=== PATIENT | male | born 1955 | race Caucasian/White ===

== ENCOUNTER 2016-06-22 | Outpatient (CLI) | payer OTHER | END 2016-06-22 14:31 | disposition home or self-care (01) | DX: G62.0 Drug-induced polyneuropathy (principal) ==

== ENCOUNTER 2016-07-06 | Outpatient (CLI) | payer OTHER | END 2016-07-06 08:44 | disposition home or self-care (01) | DX: G62.0 Drug-induced polyneuropathy (principal) ==

== ENCOUNTER 2016-07-20 | Outpatient (CLI) | payer OTHER | END 2016-07-20 13:10 | disposition home or self-care (01) | DX: G62.0 Drug-induced polyneuropathy (principal) ==

== ENCOUNTER 2016-08-03 | Outpatient (CLI) | payer OTHER | END 2016-08-03 14:43 | disposition home or self-care (01) | DX: G62.0 Drug-induced polyneuropathy (principal) ==

== ENCOUNTER 2016-08-10 | Outpatient (CLI) | payer OTHER | END 2016-08-10 14:11 | disposition home or self-care (01) | DX: G62.0 Drug-induced polyneuropathy (principal) ==

== ENCOUNTER 2016-09-21 12:04 | Outpatient (CLI) | payer OTHER | END 2016-09-21 12:05 | disposition home or self-care (01) | DX: G62.0 Drug-induced polyneuropathy (principal) ==

== ENCOUNTER 2016-12-25 08:00 | Outpatient (CLI) | payer OTHER | END 2016-12-25 08:01 | disposition home or self-care (01) | LOC: LAB.R 08:00 | PROVIDERS: ATTEND Family Medicine | DX: J06.9 Acute upper respiratory infection, unspecified (principal); F41.9 Anxiety disorder, unspecified; K21.9 Gastro-esophageal reflux disease without esophagitis; M75.01 Adhesive capsulitis of right shoulder; F32.9 Major depressive disorder, single episode, unspecified; I10 Essential (primary) hypertension; G62.9 Polyneuropathy, unspecified; R05 Cough; J01.90 Acute sinusitis, unspecified; H92.09 Otalgia, unspecified ear; K59.00 Constipation, unspecified; M25.559 Pain in unspecified hip; R13.10 Dysphagia, unspecified | CPT/HCPCS: 86735; 86762; 86765 ==

== ENCOUNTER 2017-06-29 15:50 | Emergency (ER) | payer OTHER ==
[2017-06-29 16:01] VITALS: BP 121/47
--- NOTE | 2017-06-29 16:40 | XRAY Preliminary Report ---
Exam: XR CHEST 2 VIEW X-RAY IMPRESSION: Normal 2-view chest radiography. [facility] SITE ID: [id number]
--- NOTE | 2017-06-29 16:47 | XRAY Report ---
EXAM: CHEST RADIOGRAPHY EXAM DATE: 06/29/2017 04:26 PM. CLINICAL HISTORY: Prior stem cell transplant. Cough and shortness of breath for 2 days. COMPARISON: 11/21/2015. TECHNIQUE: 2 views. FINDINGS: Lungs/Pleura: No focal opacities evident. No pleural effusion. No pneumothorax. Normal volumes. Mediastinum: Heart and mediastinal contours are unremarkable. Other: Stable right subclavian Port-A-Cath tip mid-third SVC. Remote mild wedging T12. Old left humeral head and neck fracture. IMPRESSION: Normal 2-view chest radiography. [facility] Referring Provider Line: [phone] SITE ID: [id number]
--- NOTE | 2017-06-29 16:56 | ED Physician Documentation ---
PD HPI URI - Stated complaint Stated Complaint: COUGH/SOA/SWEATING - Chief complaint Chief Complaint: Resp - History obtained from History obtained from: Patient - History of Present Illness Timing - onset: How many weeks ago (over 1 week) Timing duration: Weeks (over 1 week of congestion, cough, chills, with worse cough and now productive the past day. Concerned about pneumonia.) Timing details: Gradual onset, Still present Associated symptoms: Fever, Chills, Nasal congestion, Productive cough. No: Sore throat, Hemoptysis, Chest pain, Bilateral edema Contributing factors: Sick contact, Immunocompromised (has lung tumor and is on meds for it.). No: Travel, COPD / asthma Review of Systems Constitutional: reports: Fever, Chills, Myalgias Nose: reports: Congestion. denies: Rhinorrhea / runny nose Throat: reports: Sore throat Cardiac: denies: Chest pain / pressure Respiratory: reports: Dyspnea, Cough, Wheezing GI: reports: Nausea. denies: Abdominal Pain, Vomiting, Diarrhea : denies: Dysuria, Frequency Skin: denies: Rash, Lesions Neurologic: reports: Generalized weakness. denies: Focal weakness, Numbness, Near syncope, Altered mental status, Headache Psychiatric: denies: Insomnia Endocrine: denies: Weight loss, Weight gain, Easy bruising / bleeding PD PAST MEDICAL HISTORY - Past Medical History Cardiovascular: None Respiratory: Pneumonia, Other (lung tumor) Endocrine/Autoimmune: Other GI: GERD, Hiatal hernia : None HEENT: None Psych: None Musculoskeletal: None Derm: None - Past Surgical History Past Surgical History: Yes General: Appendectomy, Colonoscopy, EGD - Present Medications Home Medications: Ambulatory Orders Medication Instructions Recorded Confirmed Omeprazole [PriLOSEC] 20 mg PO BID 04/07/13 06/29/17 Multivitamin [Multi Vitamin Daily] 1 tab PO DAILY 05/04/14 06/29/17 Valacyclovir HCl [Valtrex] 500 mg PO BID 06/08/14 06/29/17 Cholecalciferol (Vitamin D3) 400 unit PO DAILY 02/08/15 06/29/17 [Vitamin D] Dronabinol [Marinol] 10 mg PO Q8H PRN 02/08/15 06/29/17 Gabapentin 600 mg PO TID 07/05/15 06/29/17 Lorazepam [Ativan] 1 mg PO Q12H PRN 07/07/15 06/29/17 Aspirin Chewable [[place] 81 mg PO DAILY 02/28/16 06/29/17 Aspirin] Folic Acid 0.8 mg PO DAILY 02/28/16 06/29/17 Bupropion HCl [Wellbutrin Sr] 200 mg PO BID 05/29/16 06/29/17 traZODone [Desyrel] 75 mg PO DAILY PM PRN 07/24/16 06/29/17 Albuterol Sulf [Ventolin Hfa 1 - 2 puffs INH Q4HR PRN #1 inhaler 06/29/17 Inhaler] Benzonatate [Tessalon] 100 mg PO TID PRN #25 capsule 06/29/17 Dexamethasone [Decadron] 4 mg PO DAILY #5 tablet 06/29/17 Doxycycline Monohydrate 100 mg PO BID #14 tablet 06/29/17 guaiFENesin/CODEINE [Robitussin AC] 10 ml PO Q6H PRN #240 ml 06/29/17 - Allergies Allergies/Adverse Reactions: Allergies Allergy/AdvReac Type Severity Reaction Status Date / Time No Known Drug Allergies Allergy Unverified 04/07/13 14:59 - Living Situation Living Situation: reports: With spouse/s.o. - Social History Does the pt smoke?: No Smoking Status: Never smoker Does the pt drink ETOH?: No Does the pt have substance abuse?: No - POLST Patient has POLST: No PD ED PE NORMAL - Vitals Vital signs reviewed: Yes (sats are okay) - General General: Alert and oriented X 3, No acute distress, Well developed/nourished - HEENT HEENT: Ears normal, Pharynx benign - Neck Neck: Supple, no meningeal sign, No adenopathy, No JVD, No bruit - Cardiac Cardiac: RRR, No murmur - Respiratory Respiratory: No respiratory distress. No: Clear bilaterally (scattered exp wheezes noted. ) - Abdomen Abdomen: Soft, Non tender - Back Back: No CVA TTP - Derm Derm: Normal color, Warm and dry - Extremities Extremities: No tenderness to palpate, Normal ROM s pain, No edema, No calf tenderness / cord - Neuro Neuro: Alert and oriented X 3, No motor deficit, Normal speech Results - Vitals Vitals: Oxygen O2 Source Room air - Rads (name of study) chest Radiology: Prelim report reviewed (no infiltrates) PD MEDICAL DECISION MAKING - ED course Complexity details: reviewed results, considered differential (likely viral URI but he does have underlying lung Dz so can have increased possibility of bacterial colonization. ), d/w patient Departure - Departure Disposition: 01 Home, Self Care Clinical Impression: Upper respiratory infection Qualifiers: URI type: unspecified URI Qualified Code(s): J06.9 - Acute upper respiratory infection, unspecified Condition: Stable Record reviewed to determine appropriate education?: Yes Instructions: ED Upper Resp Infec Abx Tx Follow-Up: Caleb Quezada MD [Primary Care Provider] - Prescriptions: Albuterol Sulf [Ventolin Hfa Inhaler] 1 - 2 puffs INH Q4HR PRN #1 inhaler PRN Reason: Shortness Of Air/Wheezing Benzonatate [Tessalon] 100 mg PO TID PRN #25 capsule PRN Reason: Cough Dexamethasone [Decadron] 4 mg PO DAILY #5 tablet Doxycycline Monohydrate 100 mg PO BID #14 tablet guaiFENesin/CODEINE [Robitussin AC] 10 ml PO Q6H PRN #240 ml PRN Reason: Cough Comments: Drink lots of fluids. Usual medications. Use albuterol inhaler or nebulizer 4 times a day for the next week. This will help with breathing and decreased cough. Decadron for inflammation is a steroid which helps also to decrease coughing and improve breathing. This might often is viral in etiology but given your underlying problems, I would be inclined to treat with antibiotics just in case and use doxycycline twice daily for a week. Add Tessalon and codeine cough medicine as needed for symptoms. Recheck if worsening over the next several days. Discharge Date/Time: 06/29/17 18:00
[2017-06-29] MEDS ORDERED: BENZONATATE 100 MG CAPSULE PO STA (17:46)
[2017-06-29] MEDS ORDERED: DOXYCYCLINE 100 MG TABLET PO STA (17:46)
[2017-06-29] MEDS ORDERED: DEXAMETHASONE 10 MG/ML VIAL PO STA (17:46)
== END 2017-06-29 18:00 | disposition home or self-care (01) ==
LOC: ED 15:50
DX: J06.9 Acute upper respiratory infection, unspecified (principal)
CPT/HCPCS: 71046; 99283; A9270

== ENCOUNTER 2017-09-10 10:27 | Outpatient (CLI) | payer OTHER ==
[2017-09-10] MEDS ORDERED: SODIUM CHLORIDE FLUSH 0.9% 10 ML SYRINGE ONE (11:55)
[2017-09-10] MEDS ORDERED: SODIUM CHLORIDE 0.9% 1,000 ML IV ONE (11:55)
--- NOTE | 2017-09-10 12:28 | XRAY Report ---
TWO VIEW CHEST: 09/10/2017 CLINICAL INDICATION: Cough. COMPARISON: 06/29/2017. FINDINGS: Frontal and lateral views of the chest demonstrate a normal cardiac silhouette. Right subclavian port terminates in the superior vena cava. The lungs are clear. No effusion or pneumothorax is present. IMPRESSION: NO EVIDENCE OF ACUTE CARDIOPULMONARY DISEASE. NO SIGNIFICANT INTERVAL CHANGE. TD: 09/10/2017 12:27
== END 2017-09-10 10:28 | disposition home or self-care (01) ==
LOC: DI 10:27
PROVIDERS: ATTEND Internal Medicine Hematology & Oncology
DX: R05 Cough (principal)
CPT/HCPCS: 71046

== ENCOUNTER 2018-01-13 13:51 | Emergency (ER) | payer OTHER ==
[2018-01-13 14:42] LABS: BASOPHILS % (AUTO) 0.5 %; EOSINOPHILS % (AUTO) 3.9 %; HGB - HEMOGLOBIN 12.9 g/dL (14.0-18.0); MEAN CORPUSCULAR HEMOGLOBIN 34.5 pg (27.0-31.0); MEAN CORPUSCULAR HGB CONC 35.1 g/dL (32.0-36.0); MEAN CORPUSCULAR VOLUME 98.5 fL (80.0-94.0); MEAN PLATELET VOLUME 7.6 fL (7.4-11.4); MONOCYTES % (AUTO) 7.5 %; NEUTROPHILS % (AUTO) 82.1 %; PLT - PLATELET COUNT 124 10^3/uL (130-450); RED BLOOD COUNT 3.75 10^6/uL (4.70-6.10); RED CELL DISTRIBUTION WIDTH 15.5 % (12.0-15.0); WHITE BLOOD COUNT 9.4 x10^3/uL (4.8-10.8)
[2018-01-13 14:45] LABS: ABNORMAL LYMPHS % (MANUAL) 0 %
[2018-01-13 14:53] LABS: ALBUMIN 3.8 g/dL (3.2-5.5); ALBUMIN/GLOBULIN RATIO 1.8 (1.0-2.2); BILIRUBIN,TOTAL 0.6 mg/dL (0.2-1.0); CALCIUM 8.9 mg/dL (8.5-10.3); TOTAL PROTEIN 5.9 g/dL (6.7-8.2)
--- NOTE | 2018-01-13 15:00 | XRAY Report ---
Procedure Date: 01/13/2018 Accession Number: [id number] / [id number] Procedure: XR - Chest 2 View X-Ray CPT Code: 78586 FULL RESULT: EXAM: CHEST RADIOGRAPHY EXAM DATE: 01/13/2018 02:51 PM. CLINICAL HISTORY: Chest pain. COMPARISON: 09/10/2017. TECHNIQUE: 2 views. FINDINGS: Lungs/Pleura: No focal opacities evident. No pleural effusion. No pneumothorax. Normal volumes. Mediastinum: Heart and mediastinal contours are unremarkable. Other: Right chest port terminates in the upper SVC, stable. IMPRESSION: Normal 2-view chest radiography. [facility]
[2018-01-13 15:12] LABS: BAND NEUTROPHILS % (MANUAL) 2 %; LYMPHOCYTES # (MANUAL) 0.7 10^3/uL (1.5-3.5); LYMPHOCYTES % (MANUAL) 7 %; METAMYELOCYTES % (MANUAL) 2 %; MONOCYTES # (MANUAL) 1.1 10^3/uL (0.0-1.0); NEUTROPHILS # (MANUAL) 7.4 10^3/uL (1.5-6.6); NEUTROPHILS % (MANUAL) 77 %; RBC MORPHOLOGY (MULTIPLE) NORMAL APPEARANCE (NORMAL)
[2018-01-13 15:14] LABS: PLATELET ESTIMATE, MANUAL NORMAL (130-450,000) (NORMAL)
[2018-01-13 15:16] LABS: DIFFERENTIAL COMMENT MANUAL DIFFERENTIAL
--- NOTE | 2018-01-13 15:45 | ED Physician Documentation ---
PD HPI CHEST PAIN - Stated complaint Stated Complaint: CHEST PAIN - Chief complaint Chief Complaint: Cardiac - History obtained from History obtained from: Patient, Family - History of Present Illness Timing - onset: Other (62-year-old gentleman with history of multiple myeloma status post Autologous stem cell transplant in 2014 with a relapse last year and and chemotherapy now. He has a history of a remote appendectomy and hernia repair but no upper abdominal surgery. For the last 2 days he has had intermittent and like upper abdominal pain radiating up into the chest but not to the back associated with shortness of breath. When it happens it is severe and he feels confused and short of breath but not nauseous. It is not related to eating.) Review of Systems Constitutional: denies: Fever, Chills Cardiac: reports: Chest pain / pressure. denies: Palpitations, Pedal edema, Calf pain Respiratory: reports: Dyspnea. denies: Cough GI: reports: Abdominal Pain, Diarrhea. denies: Nausea, Vomiting, Constipation PD PAST MEDICAL HISTORY - Past Medical History Past Medical History: Yes Cardiovascular: None Respiratory: Pneumonia, Other Endocrine/Autoimmune: Other GI: GERD, Hiatal hernia : None HEENT: None Psych: None Musculoskeletal: None Derm: None - Past Surgical History Past Surgical History: Yes General: Appendectomy, Colonoscopy, EGD - Present Medications Home Medications: Ambulatory Orders Medication Instructions Recorded Confirmed Omeprazole [PriLOSEC] 20 mg PO BID 04/07/13 12/10/17 Multivitamin [Multi Vitamin Daily] 1 tab PO DAILY 05/04/14 12/10/17 Valacyclovir HCl [Valtrex] 500 mg PO BID 06/08/14 12/10/17 Cholecalciferol (Vitamin D3) 400 unit PO DAILY 02/08/15 12/10/17 [Vitamin D] Dronabinol [Marinol] 10 mg PO Q8H PRN 02/08/15 12/10/17 Lorazepam [Ativan] 1 mg PO Q12H PRN 07/07/15 12/10/17 Aspirin Chewable [[place] 81 mg PO DAILY 02/28/16 12/10/17 Aspirin] Bupropion HCl [Wellbutrin Sr] 200 mg PO BID 05/29/16 12/10/17 traZODone [Desyrel] 75 mg PO DAILY PM PRN 07/24/16 12/10/17 Pomalidomide [Pomalyst] 4 mg PO DAILY MDD Days 1-21, Q 28 10/24/17 12/10/17 days Gabapentin 600 mg PO TID #180 capsule 12/31/17 Dexamethasone [Decadron] 4 mg PO DAILY #50 tablet 01/08/18 - Allergies Allergies/Adverse Reactions: Allergies Allergy/AdvReac Type Severity Reaction Status Date / Time No Known Drug Allergies Allergy Verified 01/13/18 14:06 - Social History Does the pt smoke?: No Smoking Status: Never smoker Does the pt drink ETOH?: No Does the pt have substance abuse?: No - Family History Family history: reports: Non contributory - POLST Patient has POLST: No PD ED PE NORMAL - Vitals Vital signs reviewed: Yes - General General: Alert and oriented X 3, No acute distress - HEENT HEENT: PERRL, EOMI - Neck Neck: Supple, no meningeal sign, No bony TTP - Cardiac Cardiac: RRR, No murmur - Respiratory Respiratory: No respiratory distress, Clear bilaterally - Abdomen Abdomen: Normal bowel sounds, Soft, Non tender - Derm Derm: Normal color, Warm and dry, Other (The he had a rash after getting out of the shower earlier today but is gone now, no rash now on the upper chest.) - Extremities Extremities: No edema, No calf tenderness / cord - Neuro Neuro: Alert and oriented X 3, Normal speech - Psych Psych: Normal mood, Normal affect Results - Vitals Vitals: Vital Signs - 24 hr 01/13/18 01/13/18 14:03 15:28 Temperature 37.3 C Heart Rate 70 60 Respiratory 18 15 Rate Blood Pressure 130/65 127/73 O2 Saturation 99 99 Oxygen O2 Source Room air - EKG (time done) 1409 Rate: Rate (enter#) (69) [place]: Normal Intervals: Normal DC QRS: Normal Ischemia: Normal ST segments Computer interpretation: Agree with computer - Labs Labs: Laboratory Tests 01/13/18 01/13/18 01/13/18 14:35 14:35 14:35 WBC 9.4 RBC 3.75 L Hgb 12.9 L Hct 36.9 L MCV 98.5 H MCH 34.5 H MCHC 35.1 RDW 15.5 H Plt Count 124 L MPV 7.6 Neut # (Auto) Not Reportable Lymph # (Auto) Not Reportable [place] # (Auto) Not Reportable Eos # (Auto) Not Reportable Baso # (Auto) Not Reportable Absolute Nucleated RBC Not Reportable Total Counted 100 Band Neuts % (Manual) 2 Abnorm Lymph % (Manual) 0 Metamyelocytes % 2 H Nucleated RBC % Not Reportable Neutrophils # (Manual) 7.4 H Lymphocytes # (Manual) 0.7 L Monocytes # (Manual) 1.1 H Eosinophils # (Manual) 0.0 Basophils # (Manual) 0.0 Differential Comment MANUAL DIFFERENTIAL Platelet Estimate NORMAL (130-450,000) RBC Morph Micro Appear NORMAL APPEARANCE Sodium 135 Potassium 3.4 L Chloride 105 Carbon Dioxide 22 Anion Gap 8.0 BUN 14 Creatinine 1.0 Estimated GFR (MDRD) 76 L Glucose 119 H Calcium 8.9 Total Bilirubin 0.6 AST 12 ALT 16 Alkaline Phosphatase 63 Troponin I < 0.04 Total Protein 5.9 L Albumin 3.8 Globulin 2.1 Albumin/Globulin Ratio 1.8 Lipase 19 L - Rads (name of study) CTA Chest A/P Radiology: EMP read contemporaneously (Basically normal, remote T12 fracture.) PD MEDICAL DECISION MAKING - ED course ED course: 62-year-old gentleman presents with upper episodic upper abdominal pain radiating to the chest. Associated with diarrhea. Of note the CAT scan which is read as normal actually has a significant stool load which is somewhat in contrast to the history and I wonder if he is truly actually constipated in the transverse colon giving him colonic spasms. His exam remained benign here without significant pain. - Sepsis Event Vital Signs: Vital Signs - 24 hr 01/13/18 01/13/18 14:03 15:28 Temperature 37.3 C Heart Rate 70 60 Respiratory 18 15 Rate Blood Pressure 130/65 127/73 O2 Saturation 99 99 Oxygen O2 Source Room air Departure - Departure Disposition: 01 Home, Self Care Clinical Impression: Chest pain Qualifiers: Chest pain type: unspecified Qualified Code(s): R07.9 - Chest pain, unspecified Abdominal pain Qualifiers: Abdominal location: epigastric Qualified Code(s): R10.13 - Epigastric pain Condition: Good Record reviewed to determine appropriate education?: Yes Instructions: ED Chest Pain Atypical Unkn Cause, ED Abdominal Pain Unkn Cause Comments: Drink the bottle tonight. Return if worsening or if new symptoms develop.
[2018-01-13] MEDS ORDERED: IOPAMIDOL-300 100 ML VIAL ONE (15:57)
[2018-01-13] MEDS ORDERED: IOPAMIDOL-300 100 ML VIAL IVP ONE (16:56)
--- NOTE | 2018-01-13 17:06 | CT Report ---
Procedure Date: 01/13/2018 Accession Number: [id number] / [id number] Procedure: CT - Chest Angio (PE) CPT Code: FULL RESULT: EXAM: CT ANGIOGRAM CHEST EXAM DATE: 01/13/2018 04:52 PM. CLINICAL HISTORY: Chest pain. COMPARISON: CT CHEST WO CONTRAST 10/15/2014 12:51 AM. TECHNIQUE: Routine helical imaging was performed through the chest in the pulmonary arterial phase. IV Contrast: 100 cc Isovue-300. Reconstructions: Coronal 3-D MIP reconstructions.Sagittal and coronal. In accordance with CT protocol optimization, one or more of the following dose reduction techniques were utilized for this exam: automated exposure control, adjustment of mA and/or KV based on patient size, or use of iterative reconstructive technique. FINDINGS: Pulmonary Arteries: Diagnostic quality: Adequate through the segmental arteries. No evidence for acute or chronic pulmonary emboli. Lungs/Pleura: No consolidation, nodules, or edema. No effusions or pneumothorax. Mediastinum: Normal. No cardiac enlargement or adenopathy. Thoracic Aorta: Unremarkable. Upper Abdomen: Findings are detailed separately. Other: None. IMPRESSION: 1. Negative pulmonary CT angiogram. No pulmonary emboli. 2. No evidence of consolidation or effusion. No pneumothorax. 3. Findings within the abdomen and pelvis are detailed separately. [facility]
--- NOTE | 2018-01-13 17:14 | CT Report ---
Procedure Date: 01/13/2018 Accession Number: [id number] / [id number] Procedure: CT - Abdomen/Pelvis W/ CPT Code: FULL RESULT: EXAM: CT ABDOMEN AND PELVIS EXAM DATE: 01/13/2018 04:52 PM. CLINICAL HISTORY: Abdominal pain COMPARISONS: 05/20/2014. TECHNIQUE: Routine helical CT imaging was performed through the abdomen and pelvis. IV contrast: 100 cc Isovue-300. Enteric contrast: No. Reconstructions: Coronal and sagittal. In accordance with CT protocol optimization, one or more of the following dose reduction techniques were utilized for this exam: automated exposure control, adjustment of mA and/or KV based on patient size, or use of iterative reconstructive technique. FINDINGS: Lung Bases: Findings detailed separately. Liver: Low-density foci within the liver may represent cysts. No suspicious hepatic abnormalities are seen. Gallbladder/Bile Ducts: Unremarkable. Spleen: There is mild splenomegaly. Pancreas: There is mild pancreatic atrophy. No acute abnormalities. Adrenal Glands: Normal. Kidneys: Normal. No masses or hydronephrosis. Peritoneal Cavity/Bowel: No dilated or thick-walled bowel is seen. No intraperitoneal free air or free fluid. No enlarged mesenteric or retroperitoneal lymph nodes. No evidence of appendicitis. Pelvic Organs: Normal. The bladder and visualized pelvic organs are within normal limits. Vasculature: No aneurysms or other significant abnormality. Bones: Remote T12 fracture. There is mild multilevel lumbar spine disk space narrowing. Other: None. IMPRESSION: Negative abdomen and pelvis CT. [facility]
[2018-01-13] MEDS ORDERED: MAGNESIUM CITRATE 296 ML BOTTLE PO STA (17:35)
[2018-01-13 17:47] VITALS: BP 124/70
== END 2018-01-13 17:52 | disposition home or self-care (01) ==
LOC: ED 13:51
DX: R10.13 Epigastric pain (principal); R07.9 Chest pain, unspecified; R19.7 Diarrhea, unspecified; K21.9 Gastro-esophageal reflux disease without esophagitis; C90.02 Multiple myeloma in relapse; Z94.84 Stem cells transplant status; Z79.82 Long term (current) use of aspirin
CPT/HCPCS: 36415; 71046; 71275; 74177; 80053; 83690; 84484; 85025; 93005; 99283; A9270; Q9967

== ENCOUNTER 2018-03-10 10:32 | Emergency (ER) | payer OTHER ==
--- NOTE | 2018-03-10 11:13 | XRAY Report ---
Reason: soa neutroepnic Procedure Date: 03/10/2018 Accession Number: [id number] / [id number] Procedure: XR - Chest 2 View X-Ray CPT Code: 89306 FULL RESULT: EXAM: CHEST RADIOGRAPHY EXAM DATE: 03/10/2018 11:06 AM. CLINICAL HISTORY: Cough. COMPARISON: Previous exam of 01/13/2018. TECHNIQUE: 2 views. FINDINGS: Lungs/Pleura: No focal opacities evident. No pleural effusion. No pneumothorax. Normal volumes. Mediastinum: Heart and mediastinal contours are unremarkable. Other: Right-sided Port-A-Cath in place. IMPRESSION: Normal 2-view chest radiography. Right-sided Port-A-Cath in place. [facility]
--- NOTE | 2018-03-10 11:18 | ED Physician Documentation ---
History of Present Illness - Stated complaint Stated Complaint: DIFF BREATHING/COUGH - Chief complaint Chief Complaint: Resp - Additonal information Additional information: hx from pt 63 male per MAC notes chronically neutropenic 2/2 prior chemo for myeloma (per onc note now in complete remission since 10/03) to ED with cough and dyspnea exposed to coughing granddaughter no travel no fever no NVD no leg swelling per chart hx pna but not COPD or CHF Review of Systems Constitutional: denies: Fever Cardiac: denies: Chest pain / pressure Respiratory: reports: Cough GI: denies: Abdominal Pain, Nausea, Vomiting, Diarrhea Musculoskeletal: denies: Extremity swelling Immunocompromised: reports: Immunocompromised PD PAST MEDICAL HISTORY - Past Medical History Past Medical History: Yes Cardiovascular: None Respiratory: Pneumonia, Other Endocrine/Autoimmune: Other GI: GERD, Hiatal hernia : None HEENT: None Psych: None Musculoskeletal: None Derm: None - Past Surgical History Past Surgical History: Yes General: Appendectomy, Colonoscopy, EGD - Present Medications Home Medications: Ambulatory Orders Medication Instructions Recorded Confirmed Omeprazole [PriLOSEC] 20 mg PO BID 04/07/13 03/10/18 Multivitamin [Multi Vitamin Daily] 1 tab PO DAILY 05/04/14 03/10/18 Valacyclovir HCl [Valtrex] 500 mg PO BID 06/08/14 03/10/18 Cholecalciferol (Vitamin D3) 400 unit PO DAILY 02/08/15 03/10/18 [Vitamin D] Dronabinol [Marinol] 10 mg PO Q8H PRN 02/08/15 03/10/18 Lorazepam [Ativan] 1 mg PO Q12H PRN 07/07/15 03/10/18 Aspirin Chewable [[place] 81 mg PO DAILY 02/28/16 03/10/18 Aspirin] Bupropion HCl [Wellbutrin Sr] 200 mg PO BID 05/29/16 03/10/18 traZODone [Desyrel] 75 mg PO DAILY PM PRN 07/24/16 03/10/18 Gabapentin 600 mg PO TID #180 capsule 12/31/17 03/10/18 Dexamethasone [Decadron] 4 mg PO DAILY #50 tablet 01/08/18 03/10/18 Pomalidomide [Pomalyst] 2 mg PO DAILY 02/05/18 03/10/18 Albuterol Sulfate [Proair Hfa 2 puffs INH Q4H PRN #1 inhaler 03/10/18 Inhaler] Azithromycin [Zithromax] 250 mg PO DAILY #6 tablet 03/10/18 Benzonatate [Tessalon] 100 mg PO TID PRN #20 capsule 03/10/18 guaiFENesin/DEXTROMETHORPHAN 10 ml PO Q6H PRN #120 ml 03/10/18 [Robitussin Dm] - Allergies Allergies/Adverse Reactions: Allergies Allergy/AdvReac Type Severity Reaction Status Date / Time No Known Drug Allergies Allergy Verified 01/13/18 14:06 - Social History Does the pt smoke?: No Smoking Status: Never smoker Does the pt drink ETOH?: No Does the pt have substance abuse?: No - POLST Patient has POLST: No PD ED PE NORMAL - Vitals Vital signs reviewed: Yes - Neck Neck: Supple, no meningeal sign - Cardiac Cardiac: RRR - Respiratory Respiratory: Other (ronchi on L) - Abdomen Abdomen: Soft, Non tender - Derm Derm: Normal color - Extremities Extremities: No edema, No calf tenderness / cord - Neuro Neuro: Alert and oriented X 3 Results - Vitals Vitals: Vital Signs - 24 hr 03/10/18 03/10/18 03/10/18 10:37 12:34 13:16 Temperature 36.8 C Heart Rate 73 71 74 Respiratory 20 20 16 Rate Blood Pressure 137/63 H 126/66 O2 Saturation 97 96 Oxygen O2 Source Room air - Labs Labs: Laboratory Tests 03/10/18 03/10/18 11:15 11:21 WBC 8.8 RBC 4.02 L Hgb 13.7 L Hct 39.7 L MCV 98.9 H MCH 34.1 H MCHC 34.4 RDW 15.8 H Plt Count 129 L MPV 7.8 Neut # (Auto) 7.5 H Lymph # (Auto) 0.5 L [place] # (Auto) 0.5 Eos # (Auto) 0.2 Baso # (Auto) 0.1 Absolute Nucleated RBC 0.00 Nucleated RBC % 0.0 Manual Slide Review Indicated RBC Morph Micro Appear 2+ ANISOCYTOSIS Influenza A (Rapid) Negative Influenza B (Rapid) Negative - Rads (name of study) CXR Radiology: See rad report (no pneumonia) PD MEDICAL DECISION MAKING - ED course ED course: neg flu neg CXR sat 96-97% no hx COPD asthma no hx CHF no leg swelling not neutropenic likely viral - started after exposed to coughing grandchild planned to dc on symptomatic meds with close fup at time of dc SO is very upset and does not feel pt has received good care she states she feels pt should have had an immediate nebulizer tx for his sx and that I should know to prescribe antibiotics I listened to her concerns I explained what work up I had done and why and the results I explained that without a hx of COPD asthma and without wheezing i did not think a breathing tx would help but that i was happy to try one (we did and it helped and so i will rx MDI and spacer) I asked if steroids had previously helped and he states not, they made him worse I also advised that antibiotics are not without risk and that if not neutropenic and without pna and sick after exposed to coughing grandchild, this is likely viral - but that if he commonly gets bacterial bronchitis and needs antibiotics i will be willing to prescribe same even offered to request admission if they wish but both decline stating they have already been here several hours and want to go home she is still upset but i have tried to meet their expectations as best possible I cancelled the dc ordered ab requested road test o2 sat I told pt and SO that i was ordering ab and that I wanted to see what his oxyygen levels were while ambulating but now nurse states pt and SO has left without the antibiotic and road test (< 5 min after I explained my updated plan and they clearly understood) and also without the rx for MDI and antibiotics, without the spacer RT was going to get asked nurse to call pt back and she did but they did not answer - VM left - Sepsis Event Vital Signs: Vital Signs - 24 hr 03/10/18 03/10/18 03/10/18 10:37 12:34 13:16 Temperature 36.8 C Heart Rate 73 71 74 Respiratory 20 20 16 Rate Blood Pressure 137/63 H 126/66 O2 Saturation 97 96 Oxygen O2 Source Room air Departure - Departure Disposition: ED [place] Clinical Impression: Acute bronchitis Qualifiers: Bronchitis organism: unspecified organism Qualified Code(s): J20.9 - Acute bronchitis, unspecified Condition: Good Instructions: Bronchitis Acute Dc Prescriptions: Albuterol Sulfate [Proair Hfa Inhaler] 2 puffs INH Q4H PRN #1 inhaler PRN Reason: Shortness Of Air/Wheezing Azithromycin [Zithromax] 250 mg PO DAILY #6 tablet Benzonatate [Tessalon] 100 mg PO TID PRN #20 capsule PRN Reason: to ease cough guaiFENesin/DEXTROMETHORPHAN [Robitussin Dm] 10 ml PO Q6H PRN #120 ml PRN Reason: Cough Comments: The flu swab was negative No pneumonia was seen on xray - but your left lung sounds a bit coarse - this is likely viral but antibiotics have been prescribed And your white blood cell count is up to 8 - you are not neutropenic today I have prescribed medications to ease your cough as well as your own inhaler Discharge Date/Time: 03/10/18 13:58
[2018-03-10 11:30] LABS: BASOPHILS # (AUTO) 0.1 10^3/uL (0.0-0.1); BASOPHILS % (AUTO) 0.6 %; EOSINOPHILS # (AUTO) 0.2 10^3/uL (0.0-0.7); EOSINOPHILS % (AUTO) 2.7 %; HGB - HEMOGLOBIN 13.7 g/dL (14.0-18.0); LYMPHOCYTES # (AUTO) 0.5 10^3/uL (1.5-3.5); LYMPHOCYTES % (AUTO) 5.5 %; MEAN CORPUSCULAR HEMOGLOBIN 34.1 pg (27.0-31.0); MEAN CORPUSCULAR HGB CONC 34.4 g/dL (32.0-36.0); MEAN CORPUSCULAR VOLUME 98.9 fL (80.0-94.0); MEAN PLATELET VOLUME 7.8 fL (7.4-11.4); MONOCYTES # (AUTO) 0.5 10^3/uL (0.0-1.0); MONOCYTES % (AUTO) 5.5 %; NEUTROPHILS # (AUTO) 7.5 10^3/uL (1.5-6.6); NEUTROPHILS % (AUTO) 85.7 %; PLT - PLATELET COUNT 129 10^3/uL (130-450); RED BLOOD COUNT 4.02 10^6/uL (4.70-6.10); RED CELL DISTRIBUTION WIDTH 15.8 % (12.0-15.0); WHITE BLOOD COUNT 8.8 x10^3/uL (4.8-10.8)
[2018-03-10 11:43] LABS: RBC MORPHOLOGY (MULTIPLE) 2+ ANISOCYTOSIS (NORMAL)
[2018-03-10 12:35] VITALS: BP 126/66
[2018-03-10] MEDS ORDERED: ALBUTEROL NEB 2.5 MG/3 ML INH STA (13:02)
[2018-03-10] MEDS ORDERED: AZITHROMYCIN 250 MG TABLET PO STA (13:37)
== END 2018-03-10 13:58 | disposition left against medical advice (07) ==
LOC: ED 10:32
DX: J20.9 Acute bronchitis, unspecified (principal); Z79.82 Long term (current) use of aspirin; Z85.820 Personal history of malignant melanoma of skin; Z92.21 Personal history of antineoplastic chemotherapy
CPT/HCPCS: 36415; 71046; 85025; 87275; 87276; 94640; 94664; 99283

== ENCOUNTER 2018-11-25 07:51 | Outpatient (CLI) | payer MEDICARE, BC ==
--- NOTE | 2018-11-26 06:21 | XRAY Report ---
Reason: PAIN IN LEFT SHOULDER Procedure Date: 11/25/2018 Accession Number: [id number] / [id number] Procedure: XR - Shoulder 3 View BILAT CPT Code: FULL RESULT: Bilateral Shoulder Radiography EXAM DATE: 11/25/2018 08:15 AM. CLINICAL HISTORY: PAIN IN LEFT SHOULDER. COMPARISON: None. TECHNIQUE: 3 views each. FINDINGS: Right: Bones: Advanced glenohumeral joint osteoarthritis. Superior subluxation of right humeral head representing chronic rotator cuff disease. No acute bony abnormality. Moderately severe acromioclavicular joint osteoarthritis. Joints: See above Soft tissues: The visualized hemithorax is unremarkable. No soft tissue swelling. Left: Bones: No acute osseous abnormality. Joints: Advanced glenohumeral joint osteoarthritis. Minimal acromioclavicular joint osteoarthritis. Soft tissues: The visualized hemithorax is unremarkable. No soft tissue swelling. IMPRESSION: 1. Advanced bilateral glenohumeral joint osteoarthritis. 2. Moderately severe right acromioclavicular joint osteoarthritis. 3. No acute osseous abnormality. RADIA
== END 2018-11-25 07:52 | disposition home or self-care (01) ==
LOC: DI 07:51
PROVIDERS: ATTEND Registered Nurse
DX: M19.012 Primary osteoarthritis, left shoulder (principal)

== ENCOUNTER 2019-05-08 13:08 | Outpatient (CLI) | payer MEDICARE, BC ==
--- NOTE | 2019-05-09 09:03 | XRAY Report ---
Reason: BRONCHITIS, NOT SPECIFIED ACUTE OR CHRONIC Procedure Date: 05/08/2019 Accession Number: [id number] / [id number] Procedure: XRS - Chest 2 View X-Ray CPT Code: 43053 Final Report FULL RESULT: EXAM: CHEST RADIOGRAPHY EXAM DATE: 05/08/2019 01:26 PM. CLINICAL HISTORY: BRONCHITIS, NOT SPECIFIED ACUTE OR CHRONIC. Shortness of breath and chest rattling for 1 week. Multiple myeloma. COMPARISON: SHOULDER AP 04/02/2019 2:46 PM CHEST 2 VIEW 03/10/2018 10:58 AM. TECHNIQUE: 2 views. FINDINGS: Lungs/Pleura: No focal opacities evident. No peribronchial cuffing or interstitial abnormality. No pleural effusion. No pneumothorax. Normal volumes. Mediastinum: Heart and mediastinal contours are unremarkable. Right subclavian Port-A-Cath with its tip at the innominate SVC junction. Other: Reverse left total shoulder arthroplasty, as before. Mild diffuse idiopathic skeletal hyperostosis in the lower thoracic spine. Mild anterior superior wedge compression deformity of approximately T12 vertebral body, as before. IMPRESSION: Negative chest. Lungs are clear. RADIA
== END 2019-05-08 13:09 | disposition home or self-care (01) ==
LOC: DI.S 13:08
PROVIDERS: ATTEND Registered Nurse
DX: J40 Bronchitis, not specified as acute or chronic (principal)
CPT/HCPCS: 71046

== ENCOUNTER 2019-08-16 07:40 | Emergency (ER) | payer MEDICARE, BC ==
--- NOTE | 2019-08-16 07:49 | ED Physician Documentation ---
PD HPI CHEST PAIN - Stated complaint Stated Complaint: CHEST PX - History of Present Illness Timing - onset: How many days ago (2-3 days of malaise, aches and now with cough.He received immunotherapy 5 days ago and typically will feel tired and achy a few days later. He typically does not have a cough. He has developed more significant infection and pneumonia in the past at times and is concerned about that. He had not been traveling. His is not ill.) Timing - onset during: Light activity Timing - details: Gradual onset, Still present, Intermittant (mainly with cough) Quality: Aching (hurts with coughing) Location: Left chest Associated symptoms: Nausea, Cough. No: Shortness of air, Diaphoresis, General Weakness, Palpitations Recently seen: Clinic Review of Systems Constitutional: reports: Myalgias, Fatigue. denies: Fever, Chills Nose: reports: Congestion. denies: Rhinorrhea / runny nose Throat: denies: Sore throat Cardiac: reports: Chest pain / pressure (hurting with cough). denies: Palpi tations Respiratory: reports: Cough. denies: Dyspnea, Wheezing GI: reports: Nausea. denies: Abdominal Pain, Vomiting, Diarrhea Skin: denies: Rash, Lesions Neurologic: denies: Altered mental status, Headache PD PAST MEDICAL HISTORY - Past Medical History Cardiovascular: None Respiratory: Pneumonia, Other Endocrine/Autoimmune: Other GI: GERD, Hiatal hernia : None HEENT: None Psych: None Musculoskeletal: None Derm: None - Past Surgical History Past Surgical History: Yes General: Appendectomy, Colonoscopy, EGD - Present Medications Home Medications: Ambulatory Orders Medication Instructions Recorded Confirmed Omeprazole [PriLOSEC] 20 mg PO BID 04/07/13 08/11/19 Multivitamin [Multi Vitamin Daily] 1 tab PO DAILY 05/04/14 08/11/19 Cholecalciferol (Vitamin D3) 400 unit PO DAILY 02/08/15 08/11/19 [Vitamin D] dronabinoL [Marinol] 10 mg PO Q8H PRN 02/08/15 08/11/19 Lorazepam [Ativan] 1 mg PO Q12H PRN 07/07/15 08/11/19 Aspirin Chewable [[place] 81 mg PO DAILY 02/28/16 08/11/19 Aspirin] buPROPion HCl [Wellbutrin Sr] 200 mg PO BID 05/29/16 08/11/19 Gabapentin 600 mg PO TID #180 capsule 12/31/17 08/11/19 Pomalidomide [Pomalyst] 2 mg PO DAILY 02/05/18 08/11/19 Valacyclovir HCl [Valtrex] 500 mg PO BID #60 tablet 08/06/18 08/11/19 dexAMETHasone [Decadron] 5 tab PO ONCE 12/03/18 08/11/19 Doxycycline Hyclate 100 mg PO DAILY 06/09/19 08/11/19 dronabinoL [Marinol] 10 mg PO BID 07/23/19 08/11/19 Albuterol Sulfate [Albuterol 2 puffs IH QID #1 hfa.aer.ad 08/16/19 Sulfate Hfa] Benzonatate [Tessalon Perle] 100 mg PO TID PRN #20 capsule 08/16/19 Cefuroxime Axetil [Cefuroxime] 500 mg PO BID #14 tablet 08/16/19 dexAMETHasone [Decadron] 4 mg PO DAILY #5 tablet 08/16/19 - Allergies Allergies/Adverse Reactions: Allergies Allergy/AdvReac Type Severity Reaction Status Date / Time No Known Drug Allergies Allergy Verified 08/16/19 07:47 - Social History Does the pt smoke?: No Smoking Status: Never smoker Does the pt drink ETOH?: No Does the pt have substance abuse?: No - POLST Patient has POLST: No PD ED PE NORMAL - Vitals Vital signs reviewed: Yes - General General: Alert and oriented X 3, No acute distress, Well developed/nourished - HEENT HEENT: Moist mucous membranes, Pharynx benign - Neck Neck: Supple, no meningeal sign, No adenopathy - Cardiac Cardiac: RRR, No murmur - Respiratory Respiratory: Clear bilaterally - Abdomen Abdomen: Soft, Non tender - Derm Derm: Normal color - Extremities Extremities: No tenderness to palpate, Normal ROM s pain, No edema, No calf tenderness / cord - Neuro Neuro: Alert and oriented X 3, No motor deficit, Normal speech Results - Vitals Vitals: Vital Signs - 24 hr 08/16/19 08/16/19 07:47 09:00 Temperature 36.6 C Heart Rate 66 75 Respiratory 18 19 Rate Blood Pressure 130/67 112/70 O2 Saturation 98 100 Oxygen O2 Source Room air - Labs Labs: Laboratory Tests 08/16/19 08/16/19 08/16/19 08:22 08:22 08:22 WBC 7.2 RBC 3.69 L Hgb 12.0 L Hct 37.2 L MCV 100.8 H MCH 32.5 H MCHC 32.3 RDW 17.1 H Plt Count 126 L MPV 10.3 Neut # (Auto) 5.8 Lymph # (Auto) 0.7 L [place] # (Auto) 0.4 Eos # (Auto) 0.2 Baso # (Auto) 0.0 Absolute Nucleated RBC 0.00 Nucleated RBC % 0.0 Manual Slide Review Indicated WBC Morphology 1+ DOHLE BODIES Platelet Estimate DECREASED (<130,000) Platelet Morphology NORMAL APPEARANCE RBC Morph Micro Appear 1+ ANISOCYTOSIS Sodium 141 Potassium 3.8 Chloride 108 Carbon Dioxide 24 Anion Gap 9.0 BUN 13 Creatinine 0.9 Estimated GFR (MDRD) 86 L Glucose 110 H Lactic Acid Calcium 8.7 Magnesium 2.0 Total Bilirubin 0.6 AST 12 ALT 16 Alkaline Phosphatase 52 Troponin I High Sens 3.7 B-Natriuretic Peptide Total Protein 5.7 L Albumin 3.9 Globulin 1.8 L Albumin/Globulin Ratio 2.2 Lipase 22 Influenza A (Rapid) Influenza B (Rapid) 08/16/19 08/16/19 08/16/19 08:22 08:22 08:44 WBC RBC Hgb Hct MCV MCH MCHC RDW Plt Count MPV Neut # (Auto) Lymph # (Auto) [place] # (Auto) Eos # (Auto) Baso # (Auto) Absolute Nucleated RBC Nucleated RBC % Manual Slide Review WBC Morphology Platelet Estimate Platelet Morphology RBC Morph Micro Appear Sodium Potassium Chloride Carbon Dioxide Anion Gap BUN Creatinine Estimated GFR (MDRD) Glucose Lactic Acid 1.2 Calcium Magnesium Total Bilirubin AST ALT Alkaline Phosphatase Troponin I High Sens B-Natriuretic Peptide 51 Total Protein Albumin Globulin Albumin/Globulin Ratio Lipase Influenza A (Rapid) Negative Influenza B (Rapid) Negative - Rads (name of study) chest xray Radiology: Prelim report reviewed (no infiltrates), See rad report PD MEDICAL DECISION MAKING - ED course Complexity details: reviewed results (No pneumonia and flu test is negative. There is white count is adequate at 7.1. No signs of sepsis. Presume likely viral illness but given his chemotherapy and such, concern would be for bacterial instead and can treat with an antibiotic in case as well as steroid and medicine for cough and an inhaler.), re-evaluated patient, considered differential (Most likely a viral illness but he does have immunotherapy (chemotherapy targeted at particular cell receptors) which can target is neutrophils but can also lead to an inflammatory response with cough. Pneumonia is a concern based on Epocrates reference for the medication.), d/w patient Departure - Departure Disposition: 01 Home, Self Care Clinical Impression: History of immunotherapy Upper respiratory infection Qualifiers: URI type: unspecified URI Qualified Code(s): J06.9 - Acute upper respiratory infection, unspecified Condition: Stable Record reviewed to determine appropriate education?: Yes Instructions: ED Upper Resp Infec Abx Tx Prescriptions: Albuterol Sulfate [Albuterol Sulfate Hfa] 2 puffs IH QID #1 hfa.aer.ad Benzonatate [Tessalon Perle] 100 mg PO TID PRN #20 capsule PRN Reason: Cough Cefuroxime Axetil [Cefuroxime] 500 mg PO BID #14 tablet dexAMETHasone [Decadron] 4 mg PO DAILY #5 tablet Comments: Your chest x-ray is clear. Your flu test is negative. Your blood count shows a good white count at 7.1 and no signs of sepsis or impending worse infection. The cough could be an inflammatory response related to the immunotherapy/chemotherapy. As such would could treat it with Decadron steroid daily for 5 more days. It may also be an infectious process so we will go with some Ceftin antibiotic twice daily for a week in case of bacterial component given your immune system may be impaired. Add albuterol inhaler 2 puffs 4 times a day if needed for wheeziness or tightness associated with the cough. Otherwise it may be a viral illness and so the steroid will help with the inflammation and we can get you some medicine for cough and presumably you would be ill for 4 to 7 days with some cold-like symptoms. Return if worsening.
[2019-08-16] MEDS ORDERED: SODIUM CHLORIDE 0.9% 1,000 ML IV ONE (08:08)
[2019-08-16] MEDS ORDERED: BENZONATATE 100 MG CAPSULE PO STA (08:15)
[2019-08-16] MEDS ORDERED: DEXAMETHASONE 10 MG/ML VIAL IVP STA (08:15)
[2019-08-16 08:30] LABS: BASOPHILS % (AUTO) 0.4 %; EOSINOPHILS # (AUTO) 0.2 10^3/uL (0.0-0.7); EOSINOPHILS % (AUTO) 3.1 %; LYMPHOCYTES # (AUTO) 0.7 10^3/uL (1.5-3.5); LYMPHOCYTES % (AUTO) 9.4 %; MEAN CORPUSCULAR HEMOGLOBIN 32.5 pg (27.0-31.0); MEAN CORPUSCULAR HGB CONC 32.3 g/dL (32.0-36.0); MEAN CORPUSCULAR VOLUME 100.8 fL (80.0-94.0); MEAN PLATELET VOLUME 10.3 fL (7.4-11.4); MONOCYTES # (AUTO) 0.4 10^3/uL (0.0-1.0); MONOCYTES % (AUTO) 5.6 %; NEUTROPHILS # (AUTO) 5.8 10^3/uL (1.5-6.6); NEUTROPHILS % (AUTO) 80.5 %; PLT - PLATELET COUNT 126 10^3/uL (130-450); RED BLOOD COUNT 3.69 10^6/uL (4.70-6.10); RED CELL DISTRIBUTION WIDTH 17.1 % (12.0-15.0); WHITE BLOOD COUNT 7.2 x10^3/uL (4.8-10.8)
[2019-08-16 08:42] LABS: ALBUMIN 3.9 g/dL (3.2-5.5); ALBUMIN/GLOBULIN RATIO 2.2 (1.0-2.2); BILIRUBIN,TOTAL 0.6 mg/dL (0.2-1.0); CALCIUM 8.7 mg/dL (8.5-10.3); CREATININE 0.9 mg/dL (0.6-1.2); TOTAL PROTEIN 5.7 g/dL (6.7-8.2)
--- NOTE | 2019-08-16 08:51 | XRAY Report ---
Reason: dyspnea/ cough Procedure Date: 08/16/2019 Accession Number: [id number] / [id number] Procedure: XR - Chest 2 View X-Ray CPT Code: 16901 Final Report FULL RESULT: EXAM: CHEST RADIOGRAPHY EXAM DATE: 08/16/2019 08:38 AM. CLINICAL HISTORY: Dyspnea/ cough. COMPARISON: CHEST 2 VIEW 05/08/2019 1:32 PM. TECHNIQUE: 2 views. FINDINGS: Lungs/Pleura: Mildly low lung volumes. No new focal lung consolidation or pleural effusions. No pneumothorax. Mediastinum: Cardiac silhouette size appears unremarkable. Other: Right sided chest wall port catheter appears stable. Partially visualized left shoulder arthroplasty. Chronic changes again noted within the spine. IMPRESSION: No significant change. No new focal lung consolidation or pleural effusions. RADIA
[2019-08-16 09:12] LABS: PLATELET ESTIMATE, MANUAL DECREASED (<130,000) (NORMAL); PLATELET MORPHOLOGY NORMAL APPEARANCE (NORMAL)
[2019-08-16 09:13] VITALS: BP 112/70
== END 2019-08-16 09:34 | disposition home or self-care (01) ==
LOC: ED 07:40
DX: J06.9 Acute upper respiratory infection, unspecified (principal); R07.9 Chest pain, unspecified; Z79.899 Other long term (current) drug therapy; Z79.82 Long term (current) use of aspirin
CPT/HCPCS: 36415; 71046; 80053; 83605; 83690; 83735; 83880; 84484; 85025; 87275; 87276; 93005; 96361; 96374; 96375; 99284; 99285; A9270

== ENCOUNTER 2019-08-20 10:01 | Emergency (ER) | payer MEDICARE, BC ==
[2019-08-20] MEDS ORDERED: SODIUM CHLORIDE 0.9% 1,000 ML IV ONE (10:57)
[2019-08-20 11:40] LABS: BASOPHILS % (AUTO) 0.2 %; EOSINOPHILS % (AUTO) 0.5 %; HGB - HEMOGLOBIN 12.5 g/dL (14.0-18.0); LYMPHOCYTES % (AUTO) 2.6 %; MEAN CORPUSCULAR HEMOGLOBIN 31.6 pg (27.0-31.0); MEAN CORPUSCULAR HGB CONC 31.6 g/dL (32.0-36.0); MEAN CORPUSCULAR VOLUME 100.3 fL (80.0-94.0); MEAN PLATELET VOLUME 10.7 fL (7.4-11.4); MONOCYTES % (AUTO) 5.5 %; NEUTROPHILS % (AUTO) 90.5 %; PLT - PLATELET COUNT 103 10^3/uL (130-450); RED BLOOD COUNT 3.95 10^6/uL (4.70-6.10); RED CELL DISTRIBUTION WIDTH 16.5 % (12.0-15.0); WHITE BLOOD COUNT 8.6 x10^3/uL (4.8-10.8)
[2019-08-20 11:51] LABS: ALBUMIN 4.2 g/dL (3.2-5.5); ALBUMIN/GLOBULIN RATIO 1.8 (1.0-2.2); BILIRUBIN,TOTAL 0.7 mg/dL (0.2-1.0); CALCIUM 9.1 mg/dL (8.5-10.3); CREATININE 0.9 mg/dL (0.6-1.2); TOTAL PROTEIN 6.5 g/dL (6.7-8.2)
[2019-08-20 12:09] LABS: RAPID STREP SCREEN Negative (Negative)
[2019-08-20 12:13] LABS: ABNORMAL LYMPHS % (MANUAL) 0 %
[2019-08-20 12:15] LABS: BAND NEUTROPHILS % (MANUAL) 23 %; LYMPHOCYTES # (MANUAL) 0.3 10^3/uL (1.5-3.5); LYMPHOCYTES % (MANUAL) 3 %; MONOCYTES # (MANUAL) 0.7 10^3/uL (0.0-1.0)
[2019-08-20 12:16] LABS: DIFFERENTIAL COMMENT MANUAL DIFFERENTIAL
--- NOTE | 2019-08-20 12:29 | ED Physician Documentation ---
History of Present Illness - Stated complaint Stated Complaint: FEVER,WHEEZING,SOA - Chief complaint Chief Complaint: Resp - History obtained from History obtained from: Patient, Family - Additonal information Additional information: Patient comes emergency department complaining of worsening shortness of breath For the last 5 days. He states he was seen in the emergency department 4 days ago and that work-up was negative at that point. Patient states he has been running temperatures up to the upper 99's orally. He has been coughing mostly a dry cough. He states he feels somewhat dyspneic at baseline, but that has been worse since he has had this illness. Patient states he has had some mild rhinorrhea and no sore throat. He denies body aches. No other complaints at this time. No abdominal pain, nausea, or vomiting. Review of Systems Ten Systems: 10 systems reviewed and negative Constitutional: reports: Fever Eyes: reports: Reviewed and negative Ears: reports: Reviewed and negative Nose: reports: Rhinorrhea / runny nose, Congestion Throat: reports: Reviewed and negative Cardiac: reports: Reviewed and negative Respiratory: reports: Dyspnea, Cough GI: reports: Reviewed and negative : reports: Reviewed and negative Skin: reports: Reviewed and negative Musculoskeletal: reports: Reviewed and negative Neurologic: reports: Reviewed and negative Psychiatric: reports: Reviewed and negative Endocrine: reports: Reviewed and negative Immunocompromised: reports: Reviewed and negative PD PAST MEDICAL HISTORY - Past Medical History Cardiovascular: None Respiratory: Pneumonia, Other Endocrine/Autoimmune: Other GI: GERD, Hiatal hernia : None HEENT: None Psych: None Musculoskeletal: None Derm: None - Past Surgical History Past Surgical History: Yes General: Appendectomy, Colonoscopy, EGD - Present Medications Home Medications: Ambulatory Orders Medication Instructions Recorded Confirmed Omeprazole [PriLOSEC] 20 mg PO BID 04/07/13 08/11/19 Multivitamin [Multi Vitamin Daily] 1 tab PO DAILY 05/04/14 08/11/19 Cholecalciferol (Vitamin D3) 400 unit PO DAILY 02/08/15 08/11/19 [Vitamin D] dronabinoL [Marinol] 10 mg PO Q8H PRN 02/08/15 08/11/19 Lorazepam [Ativan] 1 mg PO Q12H PRN 07/07/15 08/11/19 Aspirin Chewable [[facility] [place] 81 mg PO DAILY 02/28/16 08/11/19 Aspirin] buPROPion HCl [Wellbutrin Sr] 200 mg PO BID 05/29/16 08/11/19 Gabapentin 600 mg PO TID #180 capsule 12/31/17 08/11/19 Pomalidomide [Pomalyst] 2 mg PO DAILY 02/05/18 08/11/19 Valacyclovir HCl [Valtrex] 500 mg PO BID #60 tablet 08/06/18 08/11/19 dexAMETHasone [Decadron] 5 tab PO ONCE 12/03/18 08/11/19 Doxycycline Hyclate 100 mg PO DAILY 06/09/19 08/11/19 dronabinoL [Marinol] 10 mg PO BID 07/23/19 08/11/19 Albuterol Sulfate [Albuterol 2 puffs IH QID #1 hfa.aer.ad 08/16/19 Sulfate Hfa] Benzonatate [Tessalon Perle] 100 mg PO TID PRN #20 capsule 08/16/19 Cefuroxime Axetil [Cefuroxime] 500 mg PO BID #14 tablet 08/16/19 dexAMETHasone [Decadron] 4 mg PO DAILY #5 tablet 08/16/19 Azithromycin [Zithromax] 250 mg PO DAILY #6 tablet 08/20/19 - Allergies Allergies/Adverse Reactions: Allergies Allergy/AdvReac Type Severity Reaction Status Date / Time No Known Drug Allergies Allergy Verified 08/20/19 10:18 - Social History Does the pt smoke?: No Smoking Status: Never smoker Does the pt drink ETOH?: No Does the pt have substance abuse?: No - POLST Patient has POLST: No PD ED PE NORMAL - Vitals Vital signs reviewed: Yes - General General: Alert and oriented X 3, No acute distress - HEENT HEENT: Atraumatic, PERRL, EOMI - Neck Neck: Supple, no meningeal sign - Cardiac Cardiac: RRR, No murmur - Respiratory Respiratory: No respiratory distress (Patient is noted to ambulate to the bathroom without difficulty.), Clear bilaterally - Abdomen Abdomen: Soft, Non tender, Non distended - Derm Derm: Normal color, Warm and dry, No rash - Extremities Extremities: No deformity, No edema, No calf tenderness / cord - Neuro Neuro: Alert and oriented X 3, sawmill hand 2-12 intact, No motor deficit, No sensory deficit, Normal speech - Psych Psych: Normal mood, Normal affect Results - Vitals Vitals: Vital Signs - 24 hr 08/20/19 08/20/19 08/20/19 10:18 12:10 13:56 Temperature 37.1 C Heart Rate 72 73 74 Respiratory 22 18 20 Rate Blood Pressure 132/71 H 127/72 125/74 O2 Saturation 95 95 96 08/20/19 15:12 Temperature Heart Rate 76 Respiratory 18 Rate Blood Pressure 130/72 O2 Saturation 98 Oxygen O2 Source Room air - Labs Labs: Laboratory Tests 08/20/19 08/20/19 08/20/19 11:27 11:27 11:27 WBC 8.6 RBC 3.95 L Hgb 12.5 L Hct 39.6 L MCV 100.3 H MCH 31.6 H MCHC 31.6 L RDW 16.5 H Plt Count 103 L MPV 10.7 Neut # (Auto) Not Reportable Lymph # (Auto) Not Reportable [place] # (Auto) Not Reportable Eos # (Auto) Not Reportable Baso # (Auto) Not Reportable Absolute Nucleated RBC Not Reportable Total Counted 100 Band Neuts % (Manual) 23 H Reactive Lymphs % (Man) 1 Abnorm Lymph % (Manual) 0 Nucleated RBC % Not Reportable Neutrophils # (Manual) 7.6 H Lymphocytes # (Manual) 0.3 L Monocytes # (Manual) 0.7 Eosinophils # (Manual) 0.0 Basophils # (Manual) 0.0 Differential Comment MANUAL DIFFERENTIAL Manual Slide Review Indicated Sodium 138 Potassium 4.3 Chloride 105 Carbon Dioxide 23 Anion Gap 10.0 BUN 22 H Creatinine 0.9 Estimated GFR (MDRD) 86 L Glucose 109 H Lactic Acid 0.9 Calcium 9.1 Total Bilirubin 0.7 AST 12 ALT 16 Alkaline Phosphatase 52 Total Protein 6.5 L Albumin 4.2 Globulin 2.3 Albumin/Globulin Ratio 1.8 Lipase 19 L Influenza A (Rapid) Influenza B (Rapid) Group A Strep Rapid 08/20/19 08/20/19 11:27 11:42 WBC RBC Hgb Hct MCV MCH MCHC RDW Plt Count MPV Neut # (Auto) Lymph # (Auto) [place] # (Auto) Eos # (Auto) Baso # (Auto) Absolute Nucleated RBC Total Counted Band Neuts % (Manual) Reactive Lymphs % (Man) Abnorm Lymph % (Manual) Nucleated RBC % Neutrophils # (Manual) Lymphocytes # (Manual) Monocytes # (Manual) Eosinophils # (Manual) Basophils # (Manual) Differential Comment Manual Slide Review Sodium Potassium Chloride Carbon Dioxide Anion Gap BUN Creatinine Estimated GFR (MDRD) Glucose Lactic Acid Calcium Total Bilirubin AST ALT Alkaline Phosphatase Total Protein Albumin Globulin Albumin/Globulin Ratio Lipase Influenza A (Rapid) Negative Influenza B (Rapid) Negative Group A Strep Rapid Negative - Rads (name of study) Chest x-ray Radiology: Final report received, EMP read indepedently, See rad report (Final radiologist impression: Findings suggestive of consolidation in the left lateral costophrenic recess, which may indicate pneumonia) PD MEDICAL DECISION MAKING - ED course Complexity details: reviewed old records, reviewed results, re-evaluated patient, considered differential, d/w patient, d/w family ED course: The patient was worked up in the emergency department with labs, influenza testing, strep test, and chest x-ray. Work-up was negative except for a small infiltrate in the left lower lung. I did discuss the patient's case with the Department of [facility], given that the patient is immunocompromised with chemotherapy. After discussion of the case with their on-call public health doctor, the nurse for [facility] did call me back and stated that the patient would still be held to the same inclusion and exclusion criteria for amador virus testing as anybody else if he did not meet criteria for admission. I discussed all of this with the patient and his . I have advised him that I will place him on a Zithromax Z-JEAN MARIE, which does state patient states has worked for his pneumonia previously when initial therapy did not. The patient has been treated with cefuroxime and I have given him a dose of Rocephin in the emergency department to be sure if there generation cephalosporin coverage.We have discussed home management of the symptoms, as well as usual indications for return. Departure - Departure Disposition: 01 Home, Self Care Clinical Impression: Pneumonia Qualifiers: Pneumonia type: due to unspecified organism Laterality: left Lung location: lower lobe of lung Qualified Code(s): J18.9 - Pneumonia, unspecified organism Upper respiratory infection Qualifiers: URI type: unspecified viral URI Qualified Code(s): J06.9 - Acute upper respiratory infection, unspecified Condition: Fair Instructions: Pneumonia Dc, ED Viral Syndrome Prescriptions: Azithromycin [Zithromax] 250 mg PO DAILY #6 tablet Comments: Your labs look good today. Your influenza and strep tests are negative. Your chest x-ray shows a small area of pneumonia in your left lung compared with your x-ray on Sunday. Your case has been discussed with the [facility], who must vet any requests for coronavirus testing. They have discussed the case with their public health physician, Dr. Escamilla, and at this time, have determined that in spite of the chemotherapy, the regular inclusion criteria should still be the determinant for testing. As such, at this time, you do not meet criteria for testing for coronavirus.Please get plenty of rest and fluids at home. Take the Zithromax, as directed. If you develop worsening fevers and or shortness of breath, please seek reevaluation. Discharge Date/Time: 08/20/19 15:17
--- NOTE | 2019-08-20 14:14 | XRAY Report ---
Reason: cough Procedure Date: 08/20/2019 Accession Number: [id number] / [id number] Procedure: XR - Chest 2 View X-Ray CPT Code: 34887 Final Report FULL RESULT: EXAM: CHEST RADIOGRAPHY EXAM DATE: 08/20/2019 02:05 PM. CLINICAL HISTORY: Cough. COMPARISON: CHEST 2 VIEW 08/16/2019 8:13 AM. TECHNIQUE: 2 views. FINDINGS: Lungs/Pleura: There are small, poorly defined airspace opacities in the left lateral costophrenic recess visible on the PA view. The findings are suggestive of small foci of consolidation. There are no pleural effusions or pneumothoraces. Mediastinum: Heart and mediastinal contours are unremarkable. Other: There is a right-sided port. IMPRESSION: Findings suggestive of consolidation in the left lateral costophrenic recess, which may indicate pneumonia. RADIA
[2019-08-20] MEDS ORDERED: cefTRIAXone 2 GM in SODIUM CHLORIDE 0.9% MINIBAG 100 ML IV STA (14:35)
[2019-08-20] MEDS ORDERED: AZITHROMYCIN 250 MG TABLET PO STA (14:36)
[2019-08-20 15:13] VITALS: BP 130/72
== END 2019-08-20 15:17 | disposition home or self-care (01) ==
LOC: ED 10:01
DX: J18.9 Pneumonia, unspecified organism (principal); J06.9 Acute upper respiratory infection, unspecified; Z79.899 Other long term (current) drug therapy
CPT/HCPCS: 36415; 71046; 80053; 83605; 83690; 85025; 87040; 87070; 87077; 87275; 87276; 87430; 96361; 96365; 96375; 99284; A9270

== ENCOUNTER 2019-08-22 16:13 | Outpatient (CLI) | payer MEDICARE, BC | END 2019-08-22 16:14 | disposition EMS.NT | LOC: EMS 16:13 | PROVIDERS: ATTEND Surgery | DX: R05 Cough (principal); R52 Pain, unspecified; R53.1 Weakness ==

== ENCOUNTER 2019-11-29 15:54 | Emergency (ER) | payer MEDICARE, BC ==
--- NOTE | 2019-11-29 16:09 | ED Physician Documentation ---
PD HPI CHEST PAIN - Stated complaint Stated Complaint: CHEST TIGHTNESS - History obtained from History obtained from: Patient, Family - History of Present Illness Timing - onset: Other (64-year-old gentleman failed a stem cell transplant in for multiple myeloma but now is in remission again on him Dex and other infusions. Last infusion was about a month ago. For the last 2 days or so and maybe a little more he has had leg heaviness and chest tightness associated with increased over baseline shortness of breath. No fevers or cough. Pain is nonradiating and central.) Review of Systems Ten Systems: 10 systems reviewed and negative Constitutional: reports: Reviewed and negative Throat: reports: Reviewed and negative Cardiac: reports: Chest pain / pressure. denies: Palpitations Respiratory: reports: Dyspnea. denies: Cough PD PAST MEDICAL HISTORY - Past Medical History Cardiovascular: None Respiratory: Pneumonia, Other Endocrine/Autoimmune: Other GI: GERD, Hiatal hernia : None HEENT: None Psych: None Musculoskeletal: None Derm: None - Past Surgical History Past Surgical History: Yes General: Appendectomy, Colonoscopy, EGD - Present Medications Home Medications: Ambulatory Orders Medication Instructions Recorded Confirmed Omeprazole [PriLOSEC] 20 mg PO BID 04/07/13 11/03/19 Multivitamin [Multi Vitamin Daily] 1 tab PO DAILY 05/04/14 11/03/19 Cholecalciferol (Vitamin D3) 400 unit PO DAILY 02/08/15 11/03/19 [Vitamin D] dronabinoL [Marinol] 10 mg PO Q8H PRN 02/08/15 11/03/19 Lorazepam [Ativan] 1 mg PO Q12H PRN 07/07/15 11/03/19 Aspirin Chewable [[place] 81 mg PO DAILY 02/28/16 11/03/19 Aspirin] buPROPion HCl [Wellbutrin Sr] 200 mg PO BID 05/29/16 11/03/19 Gabapentin 600 mg PO TID #180 capsule 12/31/17 11/03/19 Pomalidomide [Pomalyst] 2 mg PO DAILY 02/05/18 11/03/19 Valacyclovir HCl [Valtrex] 500 mg PO BID #60 tablet 08/06/18 11/03/19 dexAMETHasone [Decadron] 5 tab PO ONCE 12/03/18 11/03/19 dronabinoL [Marinol] 10 mg PO BID 07/23/19 11/03/19 dexAMETHasone [Decadron] 4 mg PO DAILY #5 tablet 08/16/19 11/03/19 - Allergies Allergies/Adverse Reactions: Allergies Allergy/AdvReac Type Severity Reaction Status Date / Time No Known Drug Allergies Allergy Verified 11/29/19 16:05 - Social History Does the pt smoke?: No Smoking Status: Never smoker Does the pt drink ETOH?: No Does the pt have substance abuse?: No - POLST Patient has POLST: No PD ED PE NORMAL - Vitals Vital signs reviewed: Yes - General General: Alert and oriented X 3, No acute distress - HEENT HEENT: PERRL, EOMI - Neck Neck: Supple, no meningeal sign, No bony TTP - Cardiac Cardiac: RRR, No murmur - Respiratory Respiratory: No respiratory distress, Clear bilaterally - Abdomen Abdomen: Non tender - Back Back: No CVA TTP, No spinal TTP - Extremities Extremities: No edema, No calf tenderness / cord - Neuro Neuro: Alert and oriented X 3, Normal speech Results - Vitals Vitals: Vital Signs - 24 hr 11/29/19 11/29/19 11/29/19 16:05 16:30 16:39 Temperature 36.5 C Heart Rate 56 L 56 L 58 L Respiratory 12 14 17 Rate Blood Pressure 138/78 H 120/72 131/66 H O2 Saturation 100 100 100 11/29/19 11/29/19 11/29/19 17:09 17:30 18:22 Temperature Heart Rate 53 L 56 L 60 Respiratory 17 15 15 Rate Blood Pressure 155/103 H 125/71 131/77 H O2 Saturation 99 99 100 Oxygen O2 Source Room air - EKG (time done) 1601 Rate: Rate (enter#) (56) Rhythm: NSR [place]: Normal Intervals: Normal SC QRS: Normal Ischemia: Normal ST segments Computer interpretation: Agree with computer - Labs Labs: Laboratory Tests 11/29/19 11/29/19 11/29/19 17:13 17:13 17:13 WBC 1.5 L* RBC 3.32 L Hgb 10.6 L Hct 33.6 L MCV 101.2 H MCH 31.9 H MCHC 31.5 L RDW 15.1 H Plt Count 89 L MPV 9.9 Neut # (Auto) Not Reportable Lymph # (Auto) Not Reportable [place] # (Auto) Not Reportable Eos # (Auto) Not Reportable Baso # (Auto) Not Reportable Absolute Nucleated RBC Not Reportable Total Counted 100 Band Neuts % (Manual) 0 Abnorm Lymph % (Manual) 0 Nucleated RBC % Not Reportable Neutrophils # (Manual) 0.8 L Lymphocytes # (Manual) 0.6 L Monocytes # (Manual) 0.1 Eosinophils # (Manual) 0.0 Basophils # (Manual) 0.0 Differential Comment MANUAL DIFFERENTIAL Manual Slide Review Indicated WBC Morphology NORMAL APPEARANCE Platelet Estimate DECREASED (<130,000) Platelet Morphology NORMAL APPEARANCE RBC Morph Micro Appear 1+ MACROCYTOSIS Sodium 141 Potassium 3.9 Chloride 109 Carbon Dioxide 25 Anion Gap 7.0 BUN 17 Creatinine 0.9 Estimated GFR (MDRD) 86 L Glucose 101 H Calcium 8.5 Total Bilirubin 0.6 AST 17 ALT 16 Alkaline Phosphatase 52 Troponin I High Sens 4.7 Total Protein 5.6 L Albumin 3.8 Globulin 1.8 L Albumin/Globulin Ratio 2.1 Lipase 21 L - Rads (name of study) CTA Chest Radiology: EMP read contemporaneously (Maybe mild fluid overload) PD MEDICAL DECISION MAKING - ED course ED course: 64-year-old gentleman with known multiple myeloma status post failed bone marrow transplant several years ago presents with leg heaviness and shortness of breath. For him the symptoms are actually reminiscent of relapses and initial presentation of multiple myeloma. Cardiac testing and CT pulmonary angiogram were negative for same. Case discussed by phone with Dr. Richey on-call for Dr. Taylor who felt that the worsening leukopenia and neutropenia may be related to a progression of his disease and recommended follow-up with his oncologist this week. Departure - Departure Disposition: Home, Self Care Clinical Impression: Atypical chest pain Dyspnea Qualifiers: Dyspnea type: shortness of breath Qualified Code(s): R06.02 - Shortness of breath; R06.00 - Dyspnea, unspecified; R06.01 - Orthopnea Leukopenia Qualifiers: Leukopenia type: neutropenia Neutropenia type: secondary to cancer chemotherapy Qualified Code(s): D70.1 - Agranulocytosis secondary to cancer chemotherapy; T45.1X5A - Adverse effect of antineoplastic and immunosuppressive drugs, initial encounter Condition: Good Record reviewed to determine appropriate education?: Yes Instructions: ED Chest Pain Atypical Unkn Cause Comments: Follow-up with your oncologist on Sunday as scheduled. He may want to repeat the blood work and/or schedule you for a bone marrow biopsy. Return anytime if worsening.
[2019-11-29] MEDS ORDERED: IOVERSOL 320 100 ML VIAL IVP ONE ×2 (16:14→18:03)
[2019-11-29 17:29] LABS: BASOPHILS % (AUTO) 1.9 %; EOSINOPHILS % (AUTO) 2.6 %; HGB - HEMOGLOBIN 10.6 g/dL (14.0-18.0); LYMPHOCYTES % (AUTO) 29.9 %; MEAN CORPUSCULAR HEMOGLOBIN 31.9 pg (27.0-31.0); MEAN CORPUSCULAR HGB CONC 31.5 g/dL (32.0-36.0); MEAN CORPUSCULAR VOLUME 101.2 fL (80.0-94.0); MEAN PLATELET VOLUME 9.9 fL (7.4-11.4); NEUTROPHILS % (AUTO) 54.6 %; PLT - PLATELET COUNT 89 10^3/uL (130-450); RED BLOOD COUNT 3.32 10^6/uL (4.70-6.10); RED CELL DISTRIBUTION WIDTH 15.1 % (12.0-15.0)
[2019-11-29 17:36] LABS: WHITE BLOOD COUNT 1.5 x10^3/uL (4.8-10.8)
[2019-11-29 17:42] LABS: ALBUMIN 3.8 g/dL (3.2-5.5); ALBUMIN/GLOBULIN RATIO 2.1 (1.0-2.2); BILIRUBIN,TOTAL 0.6 mg/dL (0.2-1.0); CALCIUM 8.5 mg/dL (8.5-10.3); CREATININE 0.9 mg/dL (0.6-1.2); TOTAL PROTEIN 5.6 g/dL (6.7-8.2)
[2019-11-29 17:55] LABS: ABNORMAL LYMPHS % (MANUAL) 0 %; BAND NEUTROPHILS % (MANUAL) 0 %
[2019-11-29 18:04] LABS: DIFFERENTIAL COMMENT MANUAL DIFFERENTIAL; LYMPHOCYTES # (MANUAL) 0.6 10^3/uL (1.5-3.5); LYMPHOCYTES % (MANUAL) 38 %; MONOCYTES # (MANUAL) 0.1 10^3/uL (0.0-1.0); PLATELET ESTIMATE, MANUAL DECREASED (<130,000) (NORMAL); PLATELET MORPHOLOGY NORMAL APPEARANCE (NORMAL); RBC MORPHOLOGY (MULTIPLE) 1+ MACROCYTOSIS (NORMAL)
--- NOTE | 2019-11-29 18:15 | CT Report ---
PROCEDURE: ANGIO CHEST W INDICATIONS: chest pain/dyspnea active ca CONTRAST: IV CONTRAST: Optiray 320 ml: 53 PO CONTRAST: *NO PO CONTRAST TECHNIQUE: After the administration of intravenous contrast, 2 mm thick sections acquired from the pulmonary api nan to the posterior costophrenic angles. 3-dimensional maximum intensity projection (MIP) coronal a nd sagittal reformats were then acquired through the thorax. For radiation dose reduction, the follow ing was used: automated exposure control, adjustment of mA and/or kV according to patient size. COMPARISON: CT chest angiogram 01/13/2018. FINDINGS: Image quality: There is metallic streak artifact from patient's left shoulder prosthesis slightly borden iting evaluation. Pulmonary arteries: Pulmonary arteries are normal in size, and demonstrate no intraluminal filling d efects to suggest central pulmonary embolism. Evaluation of distal subsegmental branches is limited b y suboptimal contrast opacification. Lungs and pleura: No acute consolidation. There are bilateral indistinct groundglass opacities with m ild septal thickening suggestive of mild edema. No pleural effusions or pneumothorax. Central and pe ripheral airways are patent. Mediastinum: Heart size is normal, without pericardial effusion. There is a right internal jugular Port-A-Cath with the tip extending into the superior vena cava. No mediastinal or hilar adenopathy. Thoracic aorta is normal in caliber and enhancement. Esophagus is normal in caliber, without hiatal hernia. Bones and chest wall: No suspicious bony lesions. The ribs appear intact. There is a mild anterior wedge deformity of the T12 vertebral body redemonstrated. No axillary or supraclavicular adenopathy. Abdomen: Visualized upper abdomen redemonstrates multiple hepatic cysts within the visualized liver. IMPRESSION: 1. No evidence of central pulmonary embolism. 2. Indistinct groundglass opacities in the lungs with mild septal thickening suggestive of mild pulmo nary edema. Reviewed by: Javy Sousa MD on 11/29/2019 6:14 PM PDT Approved by: Javy Sousa MD on 11/29/2019 6:14 PM PDT Station ID: [id number]
[2019-11-29 18:34] VITALS: BP 137/66
== END 2019-11-29 18:56 | disposition home or self-care (01) ==
LOC: ED 15:54
DX: R07.89 Other chest pain (principal); R06.02 Shortness of breath; R06.01 Orthopnea; C90.00 Multiple myeloma not having achieved remission; D70.1 Agranulocytosis secondary to cancer chemotherapy; T45.1X5A Adverse effect of antineoplastic and immunosuppressive drugs, initial encounter; Z79.82 Long term (current) use of aspirin
CPT/HCPCS: 36415; 71275; 80053; 83690; 84484; 85025; 93005; 96374; 99284; 99285; Q9967

== ENCOUNTER 2019-12-11 14:53 | Outpatient (CLI) | payer MEDICARE, BC ==
[2019-12-11 15:44] LABS: HB2 TOTAL 12.2 g/dL; HEMOGLOBIN A1C 0.41 g/dL; HEMOGLOBIN A1C % 5.2 % (4.6-6.2)
[2019-12-11 16:08] LABS: FOLATE 18.46 ng/mL (5.90 - >24.8)
== END 2019-12-11 14:54 | disposition home or self-care (01) ==
LOC: LAB 14:53
PROVIDERS: ATTEND Psychiatry & Neurology Neurology
DX: T45.1X5A Adverse effect of antineoplastic and immunosuppressive drugs, initial encounter (principal); G62.0 Drug-induced polyneuropathy
CPT/HCPCS: 36415; 82607; 82746; 83036; 84207; 84443

== ENCOUNTER 2019-12-27 15:43 | Outpatient (CLI) | payer MEDICARE, BC ==
--- NOTE | 2019-12-29 09:54 | MRI Report ---
PROCEDURE: Bone Marrow Bld Supply W/O INDICATIONS: MYELOMA STAGING TECHNIQUE: Noncontrast sagittal T1 spin echo and STIR through the spine; coronal T1 spin echo and STIR through t he bony thorax, coronal T1 spin echo and STIR through the bony pelvis and femurs. COMPARISON: CT angiogram of chest dated 11/29/2019. Shoulder radiograph dated 11/25/2018. CT of abdome n and pelvis dated 01/13/2018. FINDINGS: Image quality: Excellent. Spine: All visualized vertebral bodies are normally aligned. Mild rightward scoliosis of lumbar spin e centered at L2-3 level is seen. Chronic anterior wedge compression deformity involving T12 level is again seen, unchanged from prior studies with up to 45% loss of vertebral body height anteriorly. No acute vertebral body compression fractures. The bone marrow demonstrates no suspicious lesions or s ignal abnormalities. Degenerative endplate changes are noted in mid to lower thoracic spine and thro ughout lumbar spine. Degenerative disc disease at C5-6 and C6-7 levels are seen causing mild to moder ate central canal stenosis at these levels. Central canal stenosis and suggestion of bilateral neural foraminal stenosis are also noted at L2-3 through L5-S1 levels. The visualized spinal cord demonstra mary kate normal intramedullary signal. The conus is in expected position. No epidural or paravertebral s oft tissue masses. Pelvis and hips: There is a 3.7 x 1.8 cm heterogeneously T1 hypointense and T2 hyperintense structure is seen in proximal right femoral shaft medullary space. No surrounding edema or cortical erosion is seen. No associated soft tissue mass. No pelvic ring or sacral pathologic or insufficiency fractures . Physiologic amounts of hip joint fluid are present. No joint degeneration or soft tissue bursal f luid collections. Soft tissues: No free pelvic fluid. No pathologic pelvic or inguinal adenopathy. Visualized bowel loops appear normal in caliber. Limited images through the genitourinary tract demonstrate no abnorm alities. The muscles demonstrate normal overall bulk and internal signal. Incidentally noted are mu ltiple left renal cysts measures up to 5.2 cm in size not significantly changed from prior studies. IMPRESSION: 1. 3.7 x 1.8 cm heterogeneously T1 hypointense and T2 hyperintense structure in proximal right femora l shaft medullary space without surrounding edema or bony erosive changes. Finding is most consistent with benign process such as enchondroma. Continued radiographic surveillance is recommended. 2. Degenerative disc disease in lower cervical spine, mid to lower thoracic spine and throughout lumb ar spine as above. Chronic appearing anterior wedge compression deformity at T12 level. No acute comp ression fracture. Very mild scoliosis of lumbar spine centered at L2-3 level. 3. No other area of marrow signal abnormality is seen. Reviewed by: Madhav Hansen MD on 12/29/2019 9:53 AM PDT Approved by: Madhav Hansen MD on 12/29/2019 9:53 AM PDT Station ID: [id number]
== END 2019-12-27 15:44 | disposition home or self-care (01) ==
LOC: DI 15:43
PROVIDERS: ATTEND Internal Medicine Hematology & Oncology
DX: C90.00 Multiple myeloma not having achieved remission (principal); R07.9 Chest pain, unspecified; M50.322 Other cervical disc degeneration at C5-C6 level; M51.34 Other intervertebral disc degeneration, thoracic region; M51.36 Other intervertebral disc degeneration, lumbar region; M41.86 Other forms of scoliosis, lumbar region
CPT/HCPCS: 77084

== ENCOUNTER 2020-02-04 12:06 | Outpatient (CLI) | payer MEDICARE, BC ==
--- NOTE | 2020-02-04 18:01 | CARDIAC PROCEDURE NOTE ---
DATE OF SERVICE: 02/04/2020 Physician: Talisha Villa MD, [facility] INDICATION: Dyspnea on exertion, chest pain. CARDIAC RISK FACTORS: Male gender, possible untreated hypertension (see below). PROCEDURE: After signing informed consent, the patient underwent a Raúl- protocol treadmill stress test with Echo imaging at rest and post exercise. RESTING HEART RATE: 64. PEAK HEART RATE: 115 (72% predicted maximum heart rate for age). RESTING BLOOD PRESSURE: 116/64. PEAK BLOOD PRESSURE: 197/60. The patient exercised for 4 minutes and 42 seconds on a Raúl-protocol treadmill stress test and achieved a peak heart rate of only 115 (72% PMHR), and 7 METs. The patient developed no chest pain during the test and had none at rest, pretest. The patient developed shortness of breath in stage 2, and the exercise was stopped due to fatigue and shortness of breath. He described his perceived exertion at 16/20 on the Senia scale at peak. Oxygen saturation was 96-99% on room air throughout the test. RESTING EKG: Normal sinus rhythm, left atrial enlargement and borderline first- degree block, otherwise within normal limits. EKG AT PEAK: Frequent PACs, no ST-segment depressions or T-wave abnormalities develop. SUMMARY 1. Mildly abnormal resting EKG. 2. Premature atrial contractions with exercise, but no ischemic ST-segment or T-wave changes occur. 3. If the Echo scan is negative for wall motion abnormalities, this could be due to not achieving target heart rate (only 72% PMHR was achieved). 4. Echo images reported separately. 5. This patient's cardiac risk based on all the above: Moderate. cc: MD Felicia Castaneda ARNP TD: 02/04/2020 17:20 MTDD
== END 2020-02-04 12:07 | disposition home or self-care (01) ==
LOC: DI 12:06
PROVIDERS: ATTEND Internal Medicine Cardiovascular Disease
DX: I51.7 Cardiomegaly (principal); I49.1 Atrial premature depolarization; R53.83 Other fatigue; R06.09 Other forms of dyspnea; R03.0 Elevated blood-pressure reading, without diagnosis of hypertension; R94.31 Abnormal electrocardiogram [ECG] [EKG]
CPT/HCPCS: 93350

== ENCOUNTER 2020-07-14 13:54 | Outpatient (CLI) | payer MEDICARE ==
--- NOTE | 2020-07-14 17:11 | MRI Report ---
PROCEDURE: Bone Marrow Bld Supply W/O INDICATIONS: MULTIPLE MYELOMA IN REMISSION TECHNIQUE: Noncontrast sagittal T1 spin echo and STIR through the spine; coronal T1 spin echo and STIR through t he bony thorax, coronal T1 spin echo and STIR through the bony pelvis and femurs. COMPARISON: MRI dated 12/27/2019. CT abdomen pelvis dated 01/13/2018.. FINDINGS: Image quality: Excellent. Spine: No evidence of acute fracture. Scattered multilevel endplate spurring and diffuse facet arthr opathy. Chronic fracture involving the T12 vertebral body with no marrow edema. Severe disc degeneration at L 2-L3 and L3-L4. Grade 1 retrolisthesis of L2 on L3 and L4 on L5. There is dependent posterior subcuta neous soft tissue edema. Pelvis and hips: Grossly unchanged appearance of some trochanteric marrow signal changes in the right femur, which demonstrates chondroid matrix on the comparison CT from 01/13/2018 and may represent enc hondroma although recommend continued surveillance. The left humerus is obscured by surgical hardware. There is unchanged nonspecific subcentimeter marro w signal change in the left tibial plafond. Soft tissues: No free pelvic fluid. A presumed partially visualized left renal cyst. No pathologic p elvic or inguinal adenopathy. Visualized bowel loops appear normal in caliber. Limited images throu gh the genitourinary tract demonstrate no abnormalities. The muscles demonstrate normal overall bulk and internal signal. IMPRESSION: Overall, grossly stable examination since 12/27/2019. Unchanged appearance of right subtrochanteric le kedar, possibly chondroid in nature such as enchondroma although recommend continued surveillance on s ubsequent studies. Diffuse spondylosis and facet arthropathy Additional chronic and incidental findings as above. Reviewed by: Ron Poe MD on 07/14/2020 5:10 PM PST Approved by: Ron Poe MD on 07/14/2020 5:10 PM PST Station ID: [id number]
== END 2020-07-14 13:55 | disposition home or self-care (01) ==
LOC: DI 13:54
PROVIDERS: ATTEND Internal Medicine Hematology & Oncology
DX: C90.01 Multiple myeloma in remission (principal); M47.899 Other spondylosis, site unspecified; M51.36 Other intervertebral disc degeneration, lumbar region

== ENCOUNTER 2020-07-16 08:00 | Outpatient (CLI) | payer MEDICARE | END 2020-07-16 23:59 | disposition home or self-care (01) | LOC: LAB.R 08:00 | PROVIDERS: ATTEND Internal Medicine Hematology & Oncology | DX: C90.00 Multiple myeloma not having achieved remission (principal) | CPT/HCPCS: 81599; 82570; 84156 ==

== ENCOUNTER 2020-10-20 09:02 | Outpatient (CLI) | payer MEDICARE ==
--- NOTE | 2020-10-20 12:12 | XRAY Report ---
PROCEDURE: Hip w/Pelvis 2-3V RT INDICATIONS: PX IN RT HIP TECHNIQUE: AP pelvis with lateral view(s) of the bilateral hip(s). COMPARISON: Prior MRI that includes the same region 07/14/2020 reviewed.. FINDINGS: Bones: No fractures or dislocations, but there is a chondroid matrix bone lesion involving the right intertrochanteric proximal femur, also present on prior CT scanning from 01/13/2018. No appreciable c hange over time.. Pelvic ring appears intact. No suspicious bony lesions. Soft tissues: The visualized bowel gas pattern is normal. No suspicious soft tissue calcifications. 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 This has not changed appreciably from at least 2017 Reviewed by: Blake Phillips MD on 10/20/2020 12:11 PM PDT Approved by: Blake Phillips MD on 10/20/2020 12:11 PM PDT Station ID: [id number]
--- NOTE | 2020-10-20 12:16 | XRAY Report ---
PROCEDURE: Lumbar Spine 2 View INDICATIONS: PX IN RT HIP TECHNIQUE: views of the lumbar spine were acquired. COMPARISON: CT chest 11/29/2019 which allows visualization of the moderate wedge type compression fra cture of T12 discussed in the report below.. FINDINGS: Bones: 5 [id number] vertebrae are present. There is near normal bony alignment despite a moder ate anterior wedge compression fractures seen at T12 where a mild degree of focal kyphosis appears pr esent centered at that vertebral body level. No new vertebral body compression fractures. No suspic ious bony lesions. Soft tissues: Overlying bowel gas pattern is normal. No suspicious soft tissue calcifications. IMPRESSION: Chronic T12 moderate wedge compression fracture with slight focal kyphosis centered at t hat level as a result. Degenerative disc disease is mild to moderate along the lumbosacral spine exce pt at L2-L3 where it is moderately severe. No subluxation is associated. Reviewed by: Blake Phillips MD on 10/20/2020 12:15 PM PDT Approved by: Blake Phillips MD on 10/20/2020 12:15 PM PDT Station ID: [id number]
== END 2020-10-20 09:03 | disposition home or self-care (01) ==
LOC: DI.S 09:02
PROVIDERS: ATTEND Nurse Practitioner Family
DX: M89.9 Disorder of bone, unspecified (principal); M48.54XA Collapsed vertebra, not elsewhere classified, thoracic region, initial encounter for fracture; M40.14 Other secondary kyphosis, thoracic region; M51.37 Other intervertebral disc degeneration, lumbosacral region; M51.36 Other intervertebral disc degeneration, lumbar region

== ENCOUNTER 2020-10-25 08:08 | Outpatient (CLI) | payer MEDICARE ==
--- NOTE | 2020-10-25 13:05 | MRI Report ---
PROCEDURE: Bone Marrow Bld Supply W/O INDICATIONS: MYELOMA TECHNIQUE: Noncontrast sagittal T1 spin echo and STIR through the spine; coronal T1 spin echo and STIR through t he bony thorax and lumbosacral spine. COMPARISON: Comparison radiograph of the lumbosacral spine and hip/pelvis region 10/20/2020 reviewed. Additional prior bone marrow MR study 07/14/2020 reviewed.. FINDINGS: Image quality: Excellent. Spine: All visualized vertebral bodies are normally aligned. No new vertebral body compression frac tures beyond the moderate anterior wedging of T12, chronic in appearance. There is moderately severe degenerative disc disease at L2-3 and L3-4 and a slightly less degree of degenerative change at L4-5 and L5-S1. Reactive discogenic sclerosis and edema is noted bordering L2-L3 and L3-L4.. The bone mar row demonstrates no suspicious lesions or signal abnormalities. The central spinal canal is of raz l overall caliber. The visualized spinal cord demonstrates normal intramedullary signal. The conus is in expected position. No epidural or paravertebral soft tissue masses. Soft tissues: No free pelvic fluid. No pathologic pelvic or inguinal adenopathy. Visualized bowel loops appear normal in caliber. Limited images through the genitourinary tract demonstrate no abnorm alities. The muscles demonstrate normal overall bulk and internal signal. IMPRESSION: Through the cervical, thoracic, and lumbosacral spine no new compression fracture is fou nd. The chronic moderate T12 compression fracture shows no evidence of progression. Discogenic sclerosis and reactive mild marrow edema is noted along the area of near severe degenerati ve disc disease from L2 through L4. No focal marrow space lesions are seen within the visualized axia l skeleton that would indicate presence of multiple myeloma. Reviewed by: Blake Phillips MD on 10/25/2020 1:04 PM PDT Approved by: Blake Phillips MD on 10/25/2020 1:04 PM PDT Station ID: [id number]
== END 2020-10-25 08:09 | disposition home or self-care (01) ==
LOC: DI 08:08
PROVIDERS: ATTEND Internal Medicine Hematology & Oncology
DX: M51.36 Other intervertebral disc degeneration, lumbar region (principal); M48.54XS Collapsed vertebra, not elsewhere classified, thoracic region, sequela of fracture

== ENCOUNTER 2020-12-16 08:47 | Outpatient (CLI) | payer MEDICARE | END 2020-12-16 08:48 | disposition home or self-care (01) | LOC: LAB 08:47 | PROVIDERS: ATTEND Nurse Practitioner Family | DX: Z01.84 Encounter for antibody response examination (principal); C90.00 Multiple myeloma not having achieved remission | CPT/HCPCS: 86769 ==

== ENCOUNTER 2021-01-14 11:41 | Outpatient (CLI) | payer MEDICARE | END 2021-01-14 11:42 | disposition critical access hospital (66) | LOC: EMS 11:41 | DX: M79.10 Myalgia, unspecified site (principal); R50.9 Fever, unspecified; R06.82 Tachypnea, not elsewhere classified | CPT/HCPCS: A0425; A0427 ==

== ENCOUNTER 2021-01-14 12:12 | Emergency (ER) | payer MEDICARE ==
--- NOTE | 2021-01-14 12:39 | ED Physician Documentation ---
History of Present Illness - Stated complaint Stated Complaint: FEVER - Chief complaint Chief Complaint: Fever - History obtained from History obtained from: Patient, Family, EMS - History of Present Illness Timing: Today Pain level max: 0 Pain level now: 0 - Additonal information Additional information: Patient is a 65-year-old male with a history of multiple myeloma who presents to the emergency department with fevers at home. Increasing fatigue and tiredness. States he has total body aching. No cough. No congestion. Has had his Covid vaccinations. Nothing makes this better or worse. No abdominal pain. No chest pain. No shortness of breath. No vomiting. No constipation. No urinary symptoms. No rhinorrhea or congestion. They did increase his dosage of chemotherapy last week and he has been feeling worse since then. Review of Systems Ten Systems: 10 systems reviewed and negative Constitutional: reports: Fever (101). denies: Chills Ears: denies: Ear pain Nose: denies: Rhinorrhea / runny nose, Congestion Respiratory: denies: Cough GI: denies: Nausea, Vomiting, Diarrhea Skin: denies: Rash Musculoskeletal: denies: Neck pain, Back pain Neurologic: denies: Headache PD PAST MEDICAL HISTORY - Past Medical History Cardiovascular: None Respiratory: Pneumonia, Other Endocrine/Autoimmune: Other GI: GERD, Hiatal hernia : None HEENT: None Psych: None Musculoskeletal: None Derm: None - Past Surgical History Past Surgical History: Yes General: Appendectomy, Colonoscopy, EGD - Present Medications Home Medications: Ambulatory Orders Medication Instructions Recorded Confirmed Omeprazole [PriLOSEC] 20 mg PO BID 04/07/13 01/14/21 Multivitamin [Multi Vitamin Daily] 1 tab PO DAILY 05/04/14 01/14/21 Cholecalciferol (Vitamin D3) 400 unit PO DAILY 02/08/15 01/14/21 [Vitamin D] Lorazepam [Ativan] 1 mg PO Q12H PRN 07/07/15 01/14/21 buPROPion HCl [Wellbutrin Sr] 200 mg PO BID 05/29/16 01/14/21 dronabinoL [Marinol] 10 mg PO BID 07/23/19 01/14/21 dexAMETHasone [Decadron] 20 mg PO ONCE 12/29/19 01/14/21 Gabapentin [Neurontin] 600 mg PO TID #180 capsule 02/24/20 01/14/21 Valacyclovir HCl [Valtrex] 500 mg PO BID #180 tablet 02/24/20 01/14/21 dronabinoL [Marinol] 10 mg PO BID PRN #60 cap 09/06/20 01/14/21 ondansetron HCL [Ondansetron HCl] 8 mg ORAL TID PRN 11/10/20 01/14/21 Oxycodone HCl/Acetaminophen 1 - 2 each PO Q6H PRN #10 tablet 01/14/21 [Percocet 5-325 mg Tablet] - Allergies Allergies/Adverse Reactions: Allergies Allergy/AdvReac Type Severity Reaction Status Date / Time No Known Drug Allergies Allergy Verified 01/11/21 09:08 - Social History Does the pt smoke?: No Smoking Status: Never smoker Does the pt drink ETOH?: No Does the pt have substance abuse?: No - POLST Patient has POLST: No PD ED PE NORMAL - Vitals Vital signs reviewed: Yes - General General: Well developed/nourished, Other (Drowsy, arousable, falls asleep easily) - HEENT HEENT: PERRL, Ears normal, Moist mucous membranes, Pharynx benign - Neck Neck: Supple, no meningeal sign - Cardiac Cardiac: RRR, Strong equal pulses - Respiratory Respiratory: No respiratory distress, Clear bilaterally - Abdomen Abdomen: Soft, Non tender, Non distended - Derm Derm: Warm and dry - Extremities Extremities: No edema - Neuro Neuro: Alert and oriented X 3 - Psych Psych: Normal mood, Normal affect Results - Vitals Vitals: Vital Signs - 24 hr 01/14/21 01/14/21 01/14/21 12:23 13:22 13:41 Temperature 36.6 C 37.3 C Heart Rate 79 75 72 Respiratory 19 19 16 Rate Blood Pressure 100/59 L 107/58 L 115/58 L O2 Saturation 97 97 97 01/14/21 14:00 Temperature Heart Rate 77 Respiratory 12 Rate Blood Pressure 136/66 H O2 Saturation 100 Oxygen O2 Source Room air - Labs Labs: Laboratory Tests 01/14/21 01/14/21 01/14/21 12:56 12:56 12:56 WBC 2.6 L RBC 2.86 L Hgb 9.5 L Hct 28.7 L MCV 100.3 H MCH 33.2 H MCHC 33.1 RDW 17.2 H Plt Count 39 L MPV 11.2 Neut # (Auto) Not Reportable Lymph # (Auto) Not Reportable [place] # (Auto) Not Reportable Eos # (Auto) Not Reportable Baso # (Auto) Not Reportable Absolute Nucleated RBC Not Reportable Total Counted 100 Band Neuts % (Manual) 4 Abnorm Lymph % (Manual) 0 Nucleated RBC % Not Reportable Neutrophils # (Manual) 2.0 Lymphocytes # (Manual) 0.5 L Monocytes # (Manual) 0.1 Eosinophils # (Manual) 0.0 Basophils # (Manual) 0.0 Differential Comment MANUAL DIFFERENTIAL Manual Slide Review Indicated Platelet Estimate DECREASED (<130,000) Platelet Morphology NORMAL APPEARANCE RBC Morph Micro Appear 1+ HYPOCHROMASIA PT 13.0 H INR 1.2 APTT 26.1 Sodium 140 Potassium 3.6 Chloride 111 Carbon Dioxide 20 L Anion Gap 9.0 BUN 23 H Creatinine 1.5 H Estimated GFR (MDRD) 47 L Glucose 144 H Lactic Acid Calcium 7.9 L Total Bilirubin 0.5 AST 242 H ALT 30 Alkaline Phosphatase 77 Total Protein 5.2 L Albumin 3.3 Globulin 1.9 L Albumin/Globulin Ratio 1.7 Lipase 53 H Urine Color Urine Clarity Urine pH Ur Specific [place] Urine Protein Urine Glucose (UA) Urine Ketones Urine Occult Blood Urine Nitrite Urine Bilirubin Urine Urobilinogen Ur Leukocyte Esterase Urine RBC Urine WBC Ur Squamous Epith Cells Urine Bacteria Urine Casts Ur Microscopic Review Urine Culture Comments Nasal Adenovirus (PCR) Nasal B. parapertussis DNA (PCR) Nasal Coronavir 229E PCR Nasal Coronavir HKU1 PCR Nasal Coronavir NL63 PCR Nasal Coronavir OC43 PCR Nasal Enterovir/Rhinovir PCR Nasal Influenza B PCR Nasal Influenza A PCR Nasal Parainfluen 1 PCR Nasal Parainfluen 2 PCR Nasal Parainfluen 3 PCR Nasal Parainfluen 4 PCR Nasal RSV (PCR) Nasal B.pertussis DNA PCR Nasal C.pneumoniae (PCR) Saul Human Metapneumo PCR Nasal M.pneumoniae (PCR) Nasal SARS-CoV-2 (PCR) 01/14/21 01/14/21 01/14/21 13:18 13:35 14:30 WBC RBC Hgb Hct MCV MCH MCHC RDW Plt Count MPV Neut # (Auto) Lymph # (Auto) [place] # (Auto) Eos # (Auto) Baso # (Auto) Absolute Nucleated RBC Total Counted Band Neuts % (Manual) Abnorm Lymph % (Manual) Nucleated RBC % Neutrophils # (Manual) Lymphocytes # (Manual) Monocytes # (Manual) Eosinophils # (Manual) Basophils # (Manual) Differential Comment Manual Slide Review Platelet Estimate Platelet Morphology RBC Morph Micro Appear PT INR APTT Sodium Potassium Chloride Carbon Dioxide Anion Gap BUN Creatinine Estimated GFR (MDRD) Glucose Lactic Acid 1.0 Calcium Total Bilirubin AST ALT Alkaline Phosphatase Total Protein Albumin Globulin Albumin/Globulin Ratio Lipase Urine Color DARK YELLOW Urine Clarity CLEAR Urine pH 5.5 Ur Specific [place] 1.025 Urine Protein 30 H Urine Glucose (UA) NEGATIVE Urine Ketones NEGATIVE Urine Occult Blood TRACE-INTA Urine Nitrite NEGATIVE Urine Bilirubin NEGATIVE Urine Urobilinogen 0.2 (NORMAL) Ur Leukocyte Esterase NEGATIVE Urine RBC 0-5 Urine WBC 0-3 Ur Squamous Epith Cells RARE Squamous Urine Bacteria Moderate H Urine Casts 3-5 Course Granular Ur Microscopic Review INDICATED Urine Culture Comments NOT INDICATED Nasal Adenovirus (PCR) NOT DETECTED Nasal B. parapertussis DNA (PCR) NOT DETECTED Nasal Coronavir 229E PCR NOT DETECTED Nasal Coronavir HKU1 PCR NOT DETECTED Nasal Coronavir NL63 PCR NOT DETECTED Nasal Coronavir OC43 PCR NOT DETECTED Nasal Enterovir/Rhinovir PCR NOT DETECTED Nasal Influenza B PCR NOT DETECTED Nasal Influenza A PCR NOT DETECTED Nasal Parainfluen 1 PCR NOT DETECTED Nasal Parainfluen 2 PCR NOT DETECTED Nasal Parainfluen 3 PCR NOT DETECTED Nasal Parainfluen 4 PCR NOT DETECTED Nasal RSV (PCR) NOT DETECTED Nasal B.pertussis DNA PCR NOT DETECTED Nasal C.pneumoniae (PCR) NOT DETECTED Saul Human Metapneumo PCR NOT DETECTED Nasal M.pneumoniae (PCR) NOT DETECTED Nasal SARS-CoV-2 (PCR) NOT DETECTED - Rads (name of study) cxr Radiology: Final report received, EMP read contemporaneously, See rad report (1. No acute cardiopulmonary disease. ) CT abdomen pelvis Radiology: Final report received, EMP read contemporaneously, See rad report PD MEDICAL DECISION MAKING - ED course Complexity details: reviewed results, re-evaluated patient, considered differential, d/w patient, d/w family, d/w sap plant maintenance consultant (With the patient's oncologist, Dr. Walsh) ED course: 65-year-old male with weakness and fatigue, increasing since his last chemotherapy treatment during which they increased his dosage of chemotherapy. No acute findings on laboratory testing, CT scan, chest x-ray. Given IV fluids. Patient does feel better and was able to ambulate in the emergency department, void on his own and tolerate p.o. He does not want to stay in the hospital tonight. We will prescribe pain medications for home and have him follow-up closely with his doctor. Patient and family counseled regarding signs and symptoms for which I believe and urgent re-evaluation would be necessary. Patient with good understanding of and agreement to plan and is comfortable going home at this time This document was made in part using voice recognition software. While efforts are made to proofread this document, sound alike and grammatical errors may occur. IMPRESSION: 1. Unchanged splenomegaly. 2. Old T12 compression fracture. 3. No evidence of acute abdominal process. 4. No adenopathy in the abdomen and pelvis. Departure - Departure Disposition: Home, Self Care Clinical Impression: Dehydration Acute renal failure Qualifiers: Acute renal failure type: unspecified Qualified Code(s): N17.9 - Acute kidney failure, unspecified Condition: Good Instructions: ED Dehydration Follow-Up: Felicia Mccarty ARNP [Primary Care Provider] - Within 1 week Raymond Walsh MD [Physician No Access] - Valdo Taylor MD [Physician No Access] - Prescriptions: Oxycodone HCl/Acetaminophen [Percocet 5-325 mg Tablet] 1 - 2 each PO Q6H PRN #10 tablet PRN Reason: pain Comments: This may be a side effect of your increased chemotherapy. Your testing does not show any acute abnormalities today. Please follow-up closely with your doctor for further care. Please return if you worsen. Blood cultures are also pending, if these are positive we will call you. I am prescribing a short course of narcotic pain medication for you. These are potentially dangerous and addictive medications that should be used carefully. These medications may constipate you. Take an [id number] stool softener (docusate) twice daily with plenty of water while taking these medications. If you go 24 hours without a bowel movement, take [id number] miralax, per package instructions. Do not drink or drive while taking these medications. If you received narcotic or sedating medications while in the emergency department, do not drive for 24 hours. Store this medication in a safe, secure place and out of reach of children. It is a violation of federal law to give or sell this medication to another person or to use in a manner other than prescribed. The ED will not refill narcotic prescriptions, including prescriptions lost or stolen. To dispose of unwanted medications: 1. [facility] at [address] in [place] has a medication drop box. They accept prescription medications (in pill form) Sunday through Sunday 9:00 a.m. to 5:00 p.m. 2. The [facility] [employer] [facility] accepts prescription medications (in pill form only) for disposal year round. Call for more information. 3. Contact the [facility] for the next [facility] sponsored prescription drug collection event. , [phone], or [phone];
--- NOTE | 2021-01-14 12:42 | XRAY Report ---
PROCEDURE: Chest 1 View X-Ray INDICATIONS: fever TECHNIQUE: One view of the chest was acquired. COMPARISON: 08/20/2019. FINDINGS: Surgical changes and devices: A right subclavian Port-A-Cath present with position, with tip projecti ng over the superior vena cava. A left shoulder prosthesis is partially visualized. Lungs and pleura: No pleural effusions or pneumothorax. Lungs are clear without focal consolidation . Mediastinum: Mediastinal contours appear normal. Heart size is normal. Bones and chest wall: No suspicious bony lesions. Overlying soft tissues appear unremarkable. IMPRESSION: 1. No acute cardiopulmonary disease. Reviewed by: Javy Sousa MD on 01/14/2021 12:41 PM PDT Approved by: Javy Sousa MD on 01/14/2021 12:41 PM PDT Station ID: [id number]
[2021-01-14 13:02] LABS: BASOPHILS % (AUTO) 0.4 %; EOSINOPHILS % (AUTO) 1.1 %; HCT - HEMATOCRIT 28.7 % (42.0-52.0); HGB - HEMOGLOBIN 9.5 g/dL (14.0-18.0); LYMPHOCYTES % (AUTO) 13.8 %; MEAN CORPUSCULAR HEMOGLOBIN 33.2 pg (27.0-31.0); MEAN CORPUSCULAR HGB CONC 33.1 g/dL (32.0-36.0); MEAN CORPUSCULAR VOLUME 100.3 fL (80.0-94.0); MEAN PLATELET VOLUME 11.2 fL (7.4-11.4); MONOCYTES % (AUTO) 8.8 %; NEUTROPHILS % (AUTO) 65.9 %; PLT - PLATELET COUNT 39 10^3/uL (130-450); RED BLOOD COUNT 2.86 10^6/uL (4.70-6.10); RED CELL DISTRIBUTION WIDTH 17.2 % (12.0-15.0); WHITE BLOOD COUNT 2.6 x10^3/uL (4.8-10.8)
[2021-01-14 13:06] LABS: SLIDE REVIEW? Indicated
[2021-01-14 13:19] LABS: ALBUMIN 3.3 g/dL (3.2-5.5); ALBUMIN/GLOBULIN RATIO 1.7 (1.0-2.2); BILIRUBIN,TOTAL 0.5 mg/dL (0.2-1.0); CALCIUM 7.9 mg/dL (8.5-10.3); CREATININE 1.5 mg/dL (0.6-1.2); POTASSIUM 3.6 mmol/L (3.5-5.0); TOTAL PROTEIN 5.2 g/dL (6.7-8.2)
[2021-01-14 13:20] LABS: INR 1.2 (0.8-1.2)
[2021-01-14 13:27] LABS: PARTIAL THROMBOPLASTIN TIME 26.1 secs (24.9-33.3)
[2021-01-14 13:28] LABS: ABNORMAL LYMPHS % (MANUAL) 0 %
[2021-01-14 13:29] LABS: BAND NEUTROPHILS % (MANUAL) 4 %; LYMPHOCYTES # (MANUAL) 0.5 10^3/uL (1.5-3.5); LYMPHOCYTES % (MANUAL) 19 %; MONOCYTES # (MANUAL) 0.1 10^3/uL (0.0-1.0); RBC MORPHOLOGY (MULTIPLE) 1+ HYPOCHROMASIA (NORMAL)
[2021-01-14 13:30] LABS: DIFFERENTIAL COMMENT MANUAL DIFFERENTIAL; PLATELET ESTIMATE, MANUAL DECREASED (<130,000) (NORMAL); PLATELET MORPHOLOGY NORMAL APPEARANCE (NORMAL)
[2021-01-14] MEDS ORDERED: SODIUM CHLORIDE 0.9% 1,000 ML IV STA ×2 (13:34→14:14)
[2021-01-14 14:01] LABS: BILIRUBIN,URINE NEGATIVE (NEGATIVE); GLUCOSE, URINE (UA) NEGATIVE (NEGATIVE); KETONES,URINE (UA) NEGATIVE (NEGATIVE); LEUKOCYTE ESTERASE, URINE NEGATIVE (NEGATIVE); NITRITE,URINE NEGATIVE (NEGATIVE); OCCULT BLOOD,URINE TRACE-INTA (NEGATIVE); PH,URINE 5.5 PH (5.0-7.5); PROTEIN,URINE 30 mg/dL (NEGATIVE); UROBILINOGEN,URINE 0.2 (NORMAL) E.U./dL (NORMAL)
[2021-01-14 14:02] LABS: CLARITY,URINE CLEAR (CLEAR)
[2021-01-14 14:22] LABS: RBC,URINE 0-5 /HPF (0-5); SQUAMOUS EPITHELIAL CELL,UR RARE Squamous (<= Few); WBC,URINE 0-3 /HPF (0-3)
[2021-01-14 14:23] LABS: BACTERIA,URINE Moderate /HPF (None Seen); CASTS, URINE 3-5 Course Granular /LPF
[2021-01-14 14:39] VITALS: BP 136/66
[2021-01-14 14:51] LABS: B. PARAPERTUSSIS- RESP PCR PAN NOT DETECTED; B. PERTUSSIS- RESP PCR PANEL NOT DETECTED; C. PNEUMONIAE- RESP PCR PANEL NOT DETECTED; CORONAVIRUS 229E-RESP PCR NOT DETECTED; CORONAVIRUS HKU1-RESP PCR NOT DETECTED; CORONAVIRUS NL63-RESP PCR NOT DETECTED; CORONAVIRUS OC43-RESP PCR NOT DETECTED; HUMAN METAPNEUMOVIRUS NOT DETECTED; INFLUENZA A- RESP PCR PANEL NOT DETECTED; INFLUENZA B - RESP PCR PANEL NOT DETECTED; M. PNEUMONIAE- RESP PCR PANEL NOT DETECTED; PARAINFLUENZA VIRUS 1 NOT DETECTED; PARAINFLUENZA VIRUS 2 NOT DETECTED; PARAINFLUENZA VIRUS 3 NOT DETECTED; PARAINFLUENZA VIRUS 4 NOT DETECTED; RHINOVIRUS/ENTEROVIRUS NOT DETECTED; RSV- RESP PCR PANEL NOT DETECTED; SARS-CoV-2 -RESP PCR PANEL NOT DETECTED
[2021-01-14] MEDS ORDERED: KETOROLAC 30 MG/ML VIAL IVP STA (14:56)
--- NOTE | 2021-01-14 16:57 | CT Report ---
PROCEDURE: Abdomen/Pelvis W INDICATIONS: abd pain, fever CONTRAST: IV CONTRAST: Isovue 300 ml: 100 PO CONTRAST: *NO PO CONTRAST TECHNIQUE: After the administration of intravenous contrast, 5 mm thick sections acquired from the diaphragms to the symphysis. 5 mm thick coronal and sagittal reformats were acquired. For radiation dose reducti on, the following was used: automated exposure control, adjustment of mA and/or kV according to faiza ent size. COMPARISON: 01/13/2018 FINDINGS: Image quality: Excellent. ABDOMEN: Lung bases: Lung bases are clear. Heart size is normal. Solid organs: Stable low-density lesions in the liver are consistent with cysts and possible hemangio andrews. No suspicious liver lesions. Unchanged splenomegaly. The spleen measures 16.9 cm. Gallbladder i s unremarkable. Biliary system is non dilated. Pancreas enhances normally. No adrenal nodules. Ki dneys demonstrate normal size and enhancement, without hydronephrosis. Peritoneum and bowel: Bowel loops demonstrate normal wall thickness and caliber. No free fluid or a ir. Nodes and vessels: No retroperitoneal or mesenteric adenopathy by size criteria. Aorta and inferior vena cava are normal in size. Miscellaneous: No ventral hernias. PELVIS: Genitourinary: Bladder wall thickness is normal. Miscellaneous: No inguinal hernias or adenopathy. Bones: Chronic moderate T12 compression fracture. No acute compression fractures. No lytic or blastic bony lesions. Lumbar degenerative change. IMPRESSION: 1. Unchanged splenomegaly. 2. Old T12 compression fracture. 3. No evidence of acute abdominal process. 4. No adenopathy in the abdomen and pelvis. Reviewed by: Arvind Rangel MD on 01/14/2021 4:56 PM PDT Approved by: Arvind Rangel MD on 01/14/2021 4:56 PM PDT Station ID: [id number]
[2021-01-14] MEDS ORDERED: IOPAMIDOL-300 100 ML VIAL IVP ONE (17:21)
[2021-01-14] MEDS ORDERED: IOPAMIDOL-300 100 ML VIAL ONE (17:32)
== END 2021-01-14 18:47 | disposition home or self-care (01) ==
LOC: EDUNIT# → ED 12:12
DX: N17.9 Acute kidney failure, unspecified (principal); E86.0 Dehydration; C90.00 Multiple myeloma not having achieved remission; Z20.822 Contact with and (suspected) exposure to COVID-19
CPT/HCPCS: 36415; 71045; 74177; 80053; 81001; 83605; 83690; 85025; 85610; 85730; 87040; 87631; 96361; 96374; 96375; 99284; Q9967; 0202U; 81003; 87086

== ENCOUNTER 2021-01-16 10:31 | Outpatient (CLI) | payer MEDICARE | END 2021-01-16 10:32 | disposition critical access hospital (66) | LOC: EMS 10:31 | DX: R11.0 Nausea (principal); R41.0 Disorientation, unspecified; R53.83 Other fatigue; R52 Pain, unspecified; R53.1 Weakness | CPT/HCPCS: A0425; A0427 ==

== ENCOUNTER 2021-01-16 11:01 | Emergency (ER) | payer MEDICARE ==
[2021-01-16 11:53] LABS: BASOPHILS % (AUTO) 0.4 %; EOSINOPHILS % (AUTO) 0.8 %; HCT - HEMATOCRIT 27.5 % (42.0-52.0); HGB - HEMOGLOBIN 9.5 g/dL (14.0-18.0); LYMPHOCYTES # (AUTO) 0.2 10^3/uL (1.5-3.5); LYMPHOCYTES % (AUTO) 9.1 %; MEAN CORPUSCULAR HGB CONC 34.5 g/dL (32.0-36.0); MEAN CORPUSCULAR VOLUME 95.5 fL (80.0-94.0); MEAN PLATELET VOLUME 12.2 fL (7.4-11.4); MONOCYTES # (AUTO) 0.1 10^3/uL (0.0-1.0); MONOCYTES % (AUTO) 4.9 %; NEUTROPHILS # (AUTO) 1.9 10^3/uL (1.5-6.6); NEUTROPHILS % (AUTO) 72.3 %; RED BLOOD COUNT 2.88 10^6/uL (4.70-6.10); WHITE BLOOD COUNT 2.7 x10^3/uL (4.8-10.8)
[2021-01-16] MEDS ORDERED: METOCLOPRAMIDE 10 MG/2 ML VIAL IVP STA (11:57)
[2021-01-16] MEDS ORDERED: SODIUM CHLORIDE 0.9% 1,000 ML IV STA (11:57)
[2021-01-16 11:58] LABS: PLT - PLATELET COUNT 18 10^3/uL (130-450); SLIDE REVIEW? Indicated
--- NOTE | 2021-01-16 11:59 | ED Physician Documentation ---
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 Had induction VRD, DT-pace x2 cycles, and an autologous stem cell transplant in December 2014. Subsequently relapsed January 2017, DPD induction x6 cycles, and relapsed again in October of this year. Found to have 15% plasmacytosis and is on induction Kyprolis, Cytoxan and dexamethasone starting October of this year. Last infusion was 6 days ago. He has had progressive worsening over the last days to weeks with severe nausea, sweats, fatigue, cough, poor appetite. He was seen by my partner 2 days ago, did have evidence of prerenal azotemia on labs with a BUN of 23 and a creatinine of 1.5. His usual creatinine is around 1.1. He was Covid negative. He had a chest x- ray done on that date which was normal and a CT of the abdomen showing splenomegaly and a old T12 compression fracture but no acute findings. Since then he is continued to decline with almost 0 fluid intake. Review of Systems Ten Systems: 10 systems reviewed and negative Constitutional: reports: Myalgias, Fatigue, Sweats Eyes: reports: Reviewed and negative Ears: reports: Reviewed and negative Nose: reports: Reviewed and negative Cardiac: denies: Chest pain / pressure, Palpitations PD PAST MEDICAL HISTORY - Past Medical History Past Medical History: Yes Cardiovascular: None Respiratory: Pneumonia, Other Endocrine/Autoimmune: Other GI: GERD, Hiatal hernia : None HEENT: None Psych: None Musculoskeletal: None Derm: None - Past Surgical History Past Surgical History: Yes General: Appendectomy, Colonoscopy, EGD - Present Medications Home Medications: Ambulatory Orders Medication Instructions Recorded Confirmed Omeprazole [PriLOSEC] 20 mg PO BID 04/07/13 01/16/21 Multivitamin [Multi Vitamin Daily] 1 tab PO DAILY 05/04/14 01/16/21 Cholecalciferol (Vitamin D3) 400 unit PO DAILY 02/08/15 01/16/21 [Vitamin D] Lorazepam [Ativan] 1 mg PO Q12H PRN 07/07/15 01/16/21 buPROPion HCl [Wellbutrin Sr] 200 mg PO BID 05/29/16 01/16/21 dexAMETHasone [Decadron] 4 mg PO DAILY 12/29/19 01/16/21 Gabapentin [Neurontin] 600 mg PO TID #180 capsule 02/24/20 01/16/21 Valacyclovir HCl [Valtrex] 500 mg PO BID #180 tablet 02/24/20 01/16/21 dronabinoL [Marinol] 10 mg PO BID PRN #60 cap 09/06/20 01/16/21 ondansetron HCL [Ondansetron HCl] 8 mg ORAL TID PRN 11/10/20 01/16/21 Oxycodone HCl/Acetaminophen 1 - 2 each PO Q6H PRN #10 tablet 01/14/21 01/16/21 [Percocet 5-325 mg Tablet] Metoclopramide [Reglan] 10 mg PO Q6H PRN #20 tablet 01/16/21 Morphine Ir [Ms Ir] 15 mg PO Q4H PRN #20 tablet 01/16/21 - Allergies Allergies/Adverse Reactions: Allergies Allergy/AdvReac Type Severity Reaction Status Date / Time No Known Drug Allergies Allergy Verified 01/16/21 11:19 - Social History Does the pt smoke?: No Smoking Status: Never smoker Does the pt drink ETOH?: No Does the pt have substance abuse?: No - POLST Patient has POLST: No PD ED PE NORMAL - Vitals Vital signs reviewed: Yes - General General: Alert and oriented X 3, No acute distress - HEENT HEENT: PERRL, EOMI - Neck Neck: Supple, no meningeal sign, No bony TTP - Cardiac Cardiac: RRR, No murmur - Respiratory Respiratory: No respiratory distress, Clear bilaterally - Abdomen Abdomen: Normal bowel sounds, Soft, Non tender - Back Back: No CVA TTP, No spinal TTP - Extremities Extremities: No edema, No calf tenderness / cord - Neuro Neuro: Alert and oriented X 3, Normal speech Results - Vitals Vitals: Vital Signs - 24 hr 01/16/21 01/16/21 01/16/21 11:09 11:37 14:00 Temperature 36.8 C Heart Rate 73 71 71 Heart Rate [ 85 Sitting] Heart Rate [ 87 Standing] Heart Rate [ 74 Supine] Respiratory 17 20 16 Rate Blood Pressure 108/87 H 129/71 146/65 H Blood Pressure 144/65 H [Sitting] Blood Pressure 146/65 H [Standing] Blood Pressure 138/66 H [Supine] O2 Saturation 98 98 98 01/16/21 14:59 Temperature Heart Rate 73 Heart Rate [ Sitting] Heart Rate [ Standing] Heart Rate [ Supine] Respiratory 20 Rate Blood Pressure 144/67 H Blood Pressure [Sitting] Blood Pressure [Standing] Blood Pressure [Supine] O2 Saturation 98 Oxygen O2 Source Room air - Labs Labs: Laboratory Tests 01/16/21 01/16/21 01/16/21 11:31 11:31 12:08 WBC 2.7 L RBC 2.88 L Hgb 9.5 L Hct 27.5 L MCV 95.5 H MCH 33.0 H MCHC 34.5 RDW 16.0 H Plt Count 18 L* MPV 12.2 H Neut # (Auto) 1.9 Lymph # (Auto) 0.2 L [place] # (Auto) 0.1 Eos # (Auto) 0.0 Baso # (Auto) 0.0 Absolute Nucleated RBC 0.00 Nucleated RBC % 0.0 Manual Slide Review Indicated WBC Morphology NORMAL APPEARANCE Platelet Estimate DECREASED (<130,000) Platelet Morphology NORMAL APPEARANCE RBC Morph Micro Appear NORMAL APPEARANCE Sodium 137 Potassium 3.9 Chloride 107 Carbon Dioxide 19 L Anion Gap 11.0 BUN 12 Creatinine 0.8 Estimated GFR (MDRD) 98 Glucose 90 Calcium 8.4 L Magnesium 2.1 Total Bilirubin 1.6 H AST 141 H ALT 38 Alkaline Phosphatase 64 Total Protein 5.7 L Albumin 3.6 Globulin 2.1 Albumin/Globulin Ratio 1.7 Nasal Adenovirus (PCR) NOT DETECTED Nasal B. parapertussis DNA (PCR) NOT DETECTED Nasal Coronavir 229E PCR NOT DETECTED Nasal Coronavir HKU1 PCR NOT DETECTED Nasal Coronavir NL63 PCR NOT DETECTED Nasal Coronavir OC43 PCR NOT DETECTED Nasal Enterovir/Rhinovir PCR NOT DETECTED Nasal Influenza B PCR NOT DETECTED Nasal Influenza A PCR NOT DETECTED Nasal Parainfluen 1 PCR NOT DETECTED Nasal Parainfluen 2 PCR NOT DETECTED Nasal Parainfluen 3 PCR NOT DETECTED Nasal Parainfluen 4 PCR NOT DETECTED Nasal RSV (PCR) NOT DETECTED Nasal B.pertussis DNA PCR NOT DETECTED Nasal C.pneumoniae (PCR) NOT DETECTED Saul Human Metapneumo PCR NOT DETECTED Nasal M.pneumoniae (PCR) NOT DETECTED Nasal SARS-CoV-2 (PCR) NOT DETECTED PD MEDICAL DECISION MAKING - ED course ED course: 65-year-old gentleman with relapsed myeloma, a second relapse undergoing chemotherapy who has been very symptomatic. The infusion of chemo this week was 2x dose than prior, which is why he is w orse. Given IVF and meds for sx here and feeling better. Not orthostatic p first liter IVF. Renal function better. Platelets down. Case d/w Emilie Osullivan at [facility] by phone. No need/acuity for xfer. He was feeling much better after fluids and meds here and was given prescriptions for Reglan and Zofran for symptomatic relief. Usual return precautions but you does have close follow-up. Both patient and requesting discharge home. Departure - Departure Disposition: Home, Self Care Clinical Impression: Dehydration, Multiple myeloma in relapse Condition: Good Record reviewed to determine appropriate education?: Yes Prescriptions: Morphine Ir [Ms Ir] 15 mg PO Q4H PRN #20 tablet PRN Reason: Pain Metoclopramide [Reglan] 10 mg PO Q6H PRN #20 tablet PRN Reason: nausea or headache
[2021-01-16 12:07] LABS: ALBUMIN 3.6 g/dL (3.2-5.5); ALBUMIN/GLOBULIN RATIO 1.7 (1.0-2.2); BILIRUBIN,TOTAL 1.6 mg/dL (0.2-1.0); CALCIUM 8.4 mg/dL (8.5-10.3); CREATININE 0.8 mg/dL (0.6-1.2); MAGNESIUM 2.1 mg/dL (1.7-2.8); POTASSIUM 3.9 mmol/L (3.5-5.0); TOTAL PROTEIN 5.7 g/dL (6.7-8.2)
[2021-01-16 13:06] LABS: B. PARAPERTUSSIS- RESP PCR PAN NOT DETECTED; B. PERTUSSIS- RESP PCR PANEL NOT DETECTED; C. PNEUMONIAE- RESP PCR PANEL NOT DETECTED; CORONAVIRUS 229E-RESP PCR NOT DETECTED; CORONAVIRUS HKU1-RESP PCR NOT DETECTED; CORONAVIRUS NL63-RESP PCR NOT DETECTED; CORONAVIRUS OC43-RESP PCR NOT DETECTED; HUMAN METAPNEUMOVIRUS NOT DETECTED; INFLUENZA A- RESP PCR PANEL NOT DETECTED; INFLUENZA B - RESP PCR PANEL NOT DETECTED; M. PNEUMONIAE- RESP PCR PANEL NOT DETECTED; PARAINFLUENZA VIRUS 1 NOT DETECTED; PARAINFLUENZA VIRUS 2 NOT DETECTED; PARAINFLUENZA VIRUS 3 NOT DETECTED; PARAINFLUENZA VIRUS 4 NOT DETECTED; RHINOVIRUS/ENTEROVIRUS NOT DETECTED; RSV- RESP PCR PANEL NOT DETECTED; SARS-CoV-2 -RESP PCR PANEL NOT DETECTED
[2021-01-16 13:11] LABS: PLATELET MORPHOLOGY NORMAL APPEARANCE (NORMAL); RBC MORPHOLOGY (MULTIPLE) NORMAL APPEARANCE (NORMAL)
[2021-01-16 13:12] LABS: PLATELET ESTIMATE, MANUAL DECREASED (<130,000) (NORMAL); WBC MORPHOLOGY (MULTIPLE) NORMAL APPEARANCE (NORMAL)
[2021-01-16] MEDS ORDERED: LACTATED RINGERS 1,000 ML IV STA (13:16)
[2021-01-16] MEDS ORDERED: ONDANSETRON 4 MG/2 ML VIAL IVP STA (13:37)
[2021-01-16] MEDS ORDERED: MORPHINE 2 MG/ML CARPUJECT IVP STA (13:37)
[2021-01-16] MEDS ORDERED: MORPHINE 2 MG/ML CARPUJECT ONE (13:48)
[2021-01-16] MEDS ORDERED: ONDANSETRON 4 MG/2 ML VIAL ONE (13:48)
[2021-01-16 15:01] VITALS: BP 144/67
== END 2021-01-16 15:29 | disposition home or self-care (01) ==
LOC: EDUNIT# → ED 11:01
DX: E86.0 Dehydration (principal); C90.02 Multiple myeloma in relapse; Z20.822 Contact with and (suspected) exposure to COVID-19
CPT/HCPCS: 36415; 80053; 83735; 85025; 87631; 96361; 96374; 96375; 99284; 99285; J2765; J7120; 0202U

== ENCOUNTER 2021-01-31 10:45 | Outpatient (CLI) | payer MEDICARE ==
--- NOTE | 2021-01-31 12:21 | CONSULTATION NOTE ---
Palliative Care Consultation - Referral Referring Provider: Dr. Valdo Taylor Time of Visit: [id number] Referral setting: [facility] Referral Reason: Multiple myeloma/Advanced Care Planning - Information Sources Records reviewed: Previous records reviewed History/Review of Systems obtained from: Patient, Family (spouse, Boo) - History of Present Illness Brief History of Present Illness: This is a 65-year-old gentleman who was seen and evaluated a for multiple myeloma and advance care planning in the [facility] clinic with his , Boo present. The patient was initially diagnosed with myeloma in early 08/07/2013. He was on Revlimid with poor tolerance. He had his first relapse in January 2017. He had his second relapse with lambda light chain multiple myeloma in October 2020. The patient relays that this occurred with sharp significant turning point after he visited his mother in [place]" everything went downhill from there." He has sig nificant thrombocytopenia with generalized ecchymosis and is transfusion dependent. The patient and spouse report poor experiences with the emergency department on [place] and prefer to avoid hospitalization and emergency department visits. Unfortunately, the patient over the weekend reported to [facility] for 1 unit of blood and 1 unit of platelets. It was advised that the patient return to the [facility] on Sunday however, the patient was significantly fatigued and did not wish to return as he wished to stay at home with his family. The patient has significant peripheral neuropathy as well as generalized pain. He has prescriptions for morphine immediate release 15 mg that he has been taking approximately once per day which finds more effective than the oxycodone/acetaminophen that he has been receiving. He is significantly fatigued and spending much of his time in bed. He is reliant upon his spouse for assistance. He is receiving care in the [facility] on a daily basis and typically takes approximately 2 registered nurses for management. The patient and his spouse are looking for additional support with symptom management and most specifically pain management. Patient is seen chronically ill-appearing, up in recliner chair and appears to be significantly fatigued. Medical/Surgical History - Past Medical History Cardiovascular: reports: None Respiratory: reports: Pneumonia, Other Endocrine/Autoimmune: reports: Other GI: reports: GERD, Hiatal hernia : reports: None HEENT: reports: None Psych: reports: None Musculoskeletal: reports: None Derm: reports: None MRSA Hx?: No - Past Surgical History General: reports: Appendectomy, Colonoscopy, EGD Social History - Living Situation Living arrangement: At home Living Situation: With spouse/s.o., With family (daughter and grandson) Support System: Patient and spouse have been for approximately 40 years. Patient spouse expresses that she has a history of bipolar disorder that is presently controlled and her spouse has been her support and she has not had any issues for a number of years. The patient's spouse is an active advocate for the patient. The patient retired from [employer]. The patient and spouse have 2 daughters. One daughter and grandson live in their home. They have another daughter who resides in [place] that is presently visiting. They had a birthday constitution party for the patient over the weekend and are planning to have a constitution party for the grandsons birthday later today. Family History - Family History Family History: Father: Family History Comment/Other: Noncontributory Medications/Allergies - Medications Home Medications: Ambulatory Orders Medication Instructions Recorded Confirmed Omeprazole [PriLOSEC] 20 mg PO BID 04/07/13 01/31/21 Multivitamin [Multi Vitamin Daily] 1 tab PO DAILY 05/04/14 01/31/21 Cholecalciferol (Vitamin D3) 400 unit PO DAILY 02/08/15 01/31/21 [Vitamin D] Lorazepam [Ativan] 1 mg PO Q12H PRN 07/07/15 01/31/21 buPROPion HCl [Wellbutrin Sr] 200 mg PO BID 05/29/16 01/31/21 Gabapentin [Neurontin] 600 mg PO TID #180 capsule 02/24/20 01/31/21 Valacyclovir HCl [Valtrex] 500 mg PO BID #180 tablet 02/24/20 01/31/21 dronabinoL [Marinol] 10 mg PO BID PRN #60 cap 09/06/20 01/31/21 ondansetron HCL [Ondansetron HCl] 8 mg ORAL TID PRN 11/10/20 01/31/21 Metoclopramide [Reglan] 1 tab PO Q6H PRN 01/24/21 01/31/21 Morphine Ir [Ms Ir] 1 tab PO TID 01/24/21 01/31/21 - Allergies Allergies/Adverse Reactions: Allergies Allergy/AdvReac Type Severity Reaction Status Date / Time No Known Drug Allergies Allergy Verified 01/16/21 11:19 Review of Systems - Constitutional Constitutional: reports: Fatigue, Poor appetite. denies: Fever - Eyes Eyes: reports: Other (finds it diffcult to focus on reading) - Ears, Nose & Throat Ears, Nose & Throat: reports: Other (+sore mouth) - Cardiovascular Cardiovascular: reports: Decr. exercise tolerance. denies: Chest pain, Edema - Respiratory Respiratory: denies: Cough - Gastrointestinal Gastrointestinal: reports: Constipation (reports a bowel movement a few days ago but not consistent due to decreased oral intake per spouse's additional support), Poor appetite. denies: Abdominal pain - Genitourinary Genitourinary: reports: Incontinence. denies: Dysuria - Musculoskeletal Musculoskeletal: reports: Assistive devices, Transfer issues - Neurological Neurological: reports: General weakness, Headache (occurs regularly), Other (Neuropthay, generalized; unable to open and close his left hand for several weeks due to numbness) - Psychiatric Psychiatric: reports: Depression (on Wellbutrin) - Hematologic/Lymphatic Hematologic/Lymph: reports: Anemia, Bruising - All Other Systems All Other Systems: reports: Reviewed and negative (Additional ROS from patient's spouse, Boo) Physical Exam - Vital Signs Temperature: 36.4 C Pulse Rate: 87 O2 Saturation: 100 Blood Pressure: 125/73 - Physical Exam General Appearance: positive: No acute distress, Alert, Other (Appears chronically ill and fatigued) Eyes Bilateral: positive: Normal inspection, Other (+corrective lenses) ENT: positive: No signs of dehydration Neck: positive: Trachea midline Abdomen: positive: Obese Skin: positive: Bruising (generalized most specifically to BUE) Neurologic/Psychiatric: positive: Oriented x3, Flat affect, Other (Became tearful discussing POLST) Palliative Care - POLST Patient has POLST: Yes POLST Status: DNR, Selective Treatment Pain: Pain unchanged (generalized) Tiredness/Fatigue: Severe (7-10) Drowsiness/Sedation: Severe (7-10) Nausea: Severe (7-10) Anorexia: Severe (7-10) Dyspnea: Severe (7-10) Depression: Severe (7-10) Anxiety: Severe (7-10) Feelings of wellbeing/Perceived Quality of Life: Poor Constipation: Intermittent constipation Performance Status: Minimally ambulatory. Wheelchair and chair dependent. Decreased appetite. No recent falls. Decreased oral intake. Intermittently incontinent of bowel and bladder. PPS 50% - Palliative Care Discussion: Patient continues to have significant functional decline due to his underlying dose diagnosis of multiple myeloma that has relapsed x2. The patient and spouse reporting increased symptom burden most specifically related to pain and neuropathy. The patient recognizes that he is transfusion dependent and every morning that he wakes up he is "surprised." Both the patient and spouse have experience with hospice services as the patient's father was on hospice however, the patient does not perceive this as an option for himself when gently introduced hospice services. He continues to wish to move forward with transfusions for platelets for his severe thrombocytopenia. The patient expresses a desire to be able to at home surrounded by his fami ly. He is very adamant that he does not wish to within the hospital setting. Given the patient's wishes completed POLST today as DN AR with selective interventions to the patient and family may weigh benefits versus burdens regarding moving forward with any interventions. The patient's does have some trepidation regarding having care at the local hospital and would ultimately wish to avoid an emergency department visit as well as a hospital admission. The patient and spouse appear to grasp that the patient is declining and wish to continue to have quantity of time together while managing the patient's symptom burden. The patient's spouse perceives that the patient himself feels guilty as he does not wish to leave her behind as they have been closely joints at the hip with reliance upon 1 another for the majority of the relationship with few outside support of friends. They are clearly devoted to one another and the patient's significant other presents as a high bereavement risk. Results - Lab Results Lab results reviewed: Yes Lab and Imaging Results: 01/31/2021 WBC 2.7, hemoglobin 9, hematocrit 25.7%, platelet 6, neutrophil 1.2 Sodium 137, potassium 4.3, BUN 26, creatinine 1.5, glucose 117, GFR 47, AST 153, ALT 35, alk phos 58, albumin 4.3 Impression and Recommendations - Palliative Care Impression: This is a 65-year-old gentleman with relapsed multiple myeloma, lambda light chain, presenting with high symptom burden related to anorexia, protein calorie malnutrition, peripheral neuropathy, dependent on transfusions. The patient is at high risk for severe central sequela due to thrombocytopenia and neutropenia. Patient desires to have improvement of pain management symptoms and to move forward with transfusions recognizing that this is likely palliative in nature as this is an noncurable condition. Will discontinue oxycodone/acetaminophen and titrate morphine sulfate immediate release 15 mg 3 times daily as needed for pain and see where the patient lands regarding dose titration. Palliative care will continue to build rapport, provide pain and symptom management, care coordination and anticipatory guidance. Recommendations/Counseling Done: 1. Lambda light chain myeloma. Dr. Taylor at [facility] and [facility], Dr. Walsh. Patient is transfusion dependent. Continue to be followed and supported by oncology. 2. Thrombocytopenia and neutropenia due to disease progression. Patient presents to the [facility] on a daily basis typically for transfusions. He is to be transfused if his platelets are less than 10 or his hematocrit less than 25. Patient wishes to proceed and not hold transfusions and wishes to move forward with these interventions. 3. Generalized pain due to pain of neoplastic origin. As patient has found morphine sulfate to be more effective will discontinue oxycodone/acetaminophen for ease of titration and continue morphine sulfate 15 mg 1 tablet up to 3 times daily at the present time and see where the patient lands. Discussed with patient and spouse that moving forward to have 1 provider and 1 pharmacy for controlled substance prescriptions with understanding verbalized. Patient and spouse wish to utilize [facility] in [place]. New prescription sent for morphine sulfate immediate release 15 mg tablets quantity of 90. Advised to continue to record dose administration of immediate release morphine sulfate to know where the patient will land. May consider initiation of long-acting morphine sulfate in the future based on the patient's short acting administration record. 3. Constipation. Patient with fluctuations in constipation with poor oral intake. Discussed with the patient and spouse despite poor oral intake would still expect to have a daily to every other day bowel movements with understanding verbalized. Discussed with increase in opioid therapy increases the risk of constipation with understanding verbalized. Discussed bowel protocol with utilization of MiraLAX and senna and how to titrate moving forward. Would initially initiate MiraLAX 1 cap daily and titrate up to 2 caps accordingly. Again, the goal is to have a daily, soft bowel movement with understanding verbalized. 4. Advanced care planning. Patient and has a strong desire to within his home. He does not wish to proceed forward with hospice support within the home environment as both he and his are private individuals as well as his de sire to continue moving forward with transfusions for support of his multiple myeloma. The patient recognizes that resuscitation would be futile and was open to completing POLST today as DN AR with selective interventions. Reviewed with the patient's spouse and patient himself to place POLST either on the fridge of the head of the bed for EMS services to find and copies to be made for MAC and scanned into the patient's medical record. Supportive listening provided to both the patient and spouse and discussed the role of palliative care moving forward as is additional support on the patient's journey. Supportive and empathetic listening provided. Total time spent 75 minutes with greater than 50% of this spent in counseling and coordination of care with patient and spouse, Boo, review of POLST, review of palliative and hospice philosophies, care coordination with battery charger and oncologist, review of pain and symptom management and anticipatory guidance. Disclaimer: The chart note was formulated using voice recognition technology and unfortunately sound alike errors may occur.
== END 2021-01-31 10:46 | disposition home or self-care (01) ==
LOC: PC 10:45
PROVIDERS: ATTEND Nurse Practitioner Family
DX: Z51.5 Encounter for palliative care (principal); G89.3 Neoplasm related pain (acute) (chronic); C90.02 Multiple myeloma in relapse; D69.6 Thrombocytopenia, unspecified; D70.9 Neutropenia, unspecified; G62.9 Polyneuropathy, unspecified; K59.00 Constipation, unspecified; Z79.891 Long term (current) use of opiate analgesic; Z66 Do not resuscitate
CPT/HCPCS: 99205

== ENCOUNTER 2021-02-01 13:00 | Outpatient (CLI) | payer MEDICARE ==
--- NOTE | 2021-02-01 18:18 | CONSULTATION NOTE ---
Palliative Care Follow Up - Referral Referring Provider: Dr. Valdo Taylor Time of Visit: 7581-5835 Referral setting: [facility] Referral Reason: Multiple Myeloma/Hypotension - Information Sources Records reviewed: Previous records reviewed History/Review of Systems obtained from: Patient, Family (spouse, Boo) Exam limitations: Clinical condition (+Fatigued) - History of Present Illness Update Brief HPI Update: This is a 65-year-old gentleman who was seen and evaluated a for multiple myeloma and symptomatic dizziness due to dehydration in the [facility] clinic with his , Boo present. The patient was initially diagnosed with myeloma in early 08/07/2013. He was on Revlimid with poor tolerance. He had his first relapse in January 2017. He had his second relapse with lambda light chain multiple myeloma in October 2020. The patient relays that this occurred with sharp significant turning point after he visited his mother in [place]" everything went downhill from there." He has significant thrombocytopenia with generalized ecchymosis and is transfusion dependent. Yesterday his platelets were 6K and he was transfused with platelets. His platelets today are 31K. He is pending a bone marrow biopsy and aspiration tomorrow, 02/02 in preparation for next steps. The patient has developed sores to the back of his throat and along his lower lip and was initiated on Magic mouthwash yesterday evening that has been effective. The patient himself reports that he has a decrease oral intake as he does not find anything appealing with the taste and discomfort with chewing. He has tried smoothies in the past. He does try to stay up on his oral hydration mainly consuming water. He reports significant fatigue and dizziness when standing. When performing orthostatic vital signs the patient became pale and was symptomatic and therefore will proceed with 1 L of normal saline for symptom and comfort management. As it is extremely difficult for the patient to get out of the home the patient's spouse accessed a [employer] wheelchair to utilize getting the patient in and out of the home. The patient has significant peripheral neuropathy as well as generalized pain. He does have a prescription for morphine sulfate immediate release 15 mg that he typically is taking once per day. New Rx for morphine sulfate was sent to [facility] yesterday, 01/31 however, the patient spouse denies picking this up. The patient himself reports that yesterday evening was "a challenge." They unfortunately did not celebrate his grandsons birthday and hope to make it up this evening. Past Medical History: Patient has a past medical history of Lambda light chain multiple myeloma dx 2013; peripheral neuropathy; GERD; hiatal hernia; depression; appendectomy Social History - Living Situation Living arrangement: At home Living Situation: With spouse/s.o., With family (daughter and grandson) Support System: Patient and spouse have been for approximately 40 years. The patient's spouse is an active advocate for the patient. The patient retired from [employer]. The patient and spouse have 2 daughters. One daughter and grandson live in their home. The other daughter resides in [place] and will be returning tomorrow. Medications/Allergies - Medications Home Medications: Ambulatory Orders Medication Instructions Recorded Confirmed Omeprazole [PriLOSEC] 20 mg PO BID 04/07/13 02/01/21 Multivitamin [Multi Vitamin Daily] 1 tab PO DAILY 05/04/14 02/01/21 Cholecalciferol (Vitamin D3) 400 unit PO DAILY 02/08/15 02/01/21 [Vitamin D] Lorazepam [Ativan] 1 mg PO Q12H PRN 07/07/15 02/01/21 buPROPion HCl [Wellbutrin Sr] 200 mg PO BID 05/29/16 02/01/21 Gabapentin [Neurontin] 600 mg PO TID #180 capsule 02/24/20 02/01/21 Valacyclovir HCl [Valtrex] 500 mg PO BID #180 tablet 02/24/20 02/01/21 dronabinoL [Marinol] 10 mg PO BID PRN #60 cap 09/06/20 02/01/21 ondansetron HCL [Ondansetron HCl] 8 mg ORAL TID PRN 11/10/20 02/01/21 Metoclopramide [Reglan] 1 tab PO Q6H PRN 01/24/21 02/01/21 Morphine Ir [Ms Ir] 1 tab PO TID PRN 01/24/21 02/01/21 Lidocaine Viscous 2% [Xylocaine 5 ml PO QID PRN MDD 20mls 01/31/21 02/01/21 Viscous 2%] polyethylene glycoL 3350 [Miralax] 17 g PO DAILY 02/01/21 02/01/21 - Allergies Allergies/Adverse Reactions: Allergies Allergy/AdvReac Type Severity Reaction Status Date / Time No Known Drug Allergies Allergy Verified 01/16/21 11:19 Review of Systems - Constitutional Constitutional: reports: Fatigue, Poor appetite. denies: Fever - Ears, Nose & Throat Ears, Nose & Throat: reports: Other (+sore mouth--improved with magic mouthwash) - Cardiovascular Cardiovascular: reports: Decr. exercise tolerance. denies: Chest pain, Edema - Respiratory Respiratory: denies: Cough - Gastrointestinal Gastrointestinal: reports: Constipation (did not start miralax or senna as recommended yesterday), Poor appetite, Other (feels distended at night with +flatus). denies: Abdominal pain, Reflux/heartburn, Bloating, Early satiety - Genitourinary Genitourinary: reports: Incontinence. denies: Dysuria - Musculoskeletal Musculoskeletal: reports: Assistive devices, Transfer issues - Neurological Neurological: reports: General weakness, Headache (occurs regularly), Dizziness (when standing), Other (Neuropthay, generalized; unable to open and close his left hand for several weeks due to numbness) - Psychiatric Psychiatric: reports: Depression (on Wellbutrin) - Hematologic/Lymphatic Hematologic/Lymph: reports: Anemia, Bruising - All Other Systems All Other Systems: reports: Reviewed and negative (Additional ROS from patient's spouse, Boo) Physical Exam - Vital Signs Pulse Rate: 85 O2 Saturation: 99 (on RA) Blood Pressure: 124/67 - Physical Exam General Appearance: positive: No acute distress, Alert, Other (Appears chronically ill and fatigued) Eyes Bilateral: positive: Normal inspection, Other (+corrective lenses) ENT: positive: No signs of dehydration, Oral lesions (above the uvula and along lower lip) Neck: positive: Trachea midline Cardiovascular: positive: Regular rate & rhythm Respiratory: positive: No respiratory distress, Breath sounds nml Abdomen: positive: Non-tender, Soft, Nml bowel sounds, Obese Skin: positive: Bruising (generalized most specifically to BUE with some new scattered ecchymoses to shins) Extremities: positive: No pedal edema Neurologic/Psychiatric: positive: Oriented x3, Weakness, Flat affect Palliative Care - POLST Patient has POLST: Yes POLST Status: DNR, Selective Treatment Pain: Pain improved (with use of MSIR 15mg tablets as needed) Tiredness/Fatigue: Severe (7-10) Constipation: Yes - Palliative Care Discussion: Patient continues to have significant functional decline due to his underlying dose diagnosis of multiple myeloma that has relapsed x2. He continues to have significant symptom burden and today became symptomatic when standing with dizziness with out objective findings of hypotension however, due to his limited oral intake would benefit from IV hydration and requested 1 L of normal normal saline to be infused. The patient expresses continued extreme fatigue. His spouse has obtained a [employer] wheelchair to provide assistance in and out of the home. Fortunately, martin guy has not had any falls. He recognizes that he has a terminal diagnosis however, he wishes to move forward With options to extend his life and declined to hospice services. The patient is hoping to say his goodbyes to the nurses that have cared for him over the past 7 years in the [facility]. All of these nurses have become like family to him. Both the patient and his spouse are grateful for the care that he has received at the [facility]. The patient and his are devoted to one another and every evening the patient spouse has been requesting that the patient Make a promise that he will wake up the next morning and thus far has Follow through with this request however, there will be a time that this is not the case. POLST in place as DN AR with selective interventions. Results - Lab Results Lab results reviewed: Yes Lab and Imaging Results: Plt 31k Impression and Recommendations - Palliative Care Impression: This is a 65-year-old gentleman with relapsed multiple myeloma, lambda light chain, presenting with high symptom burden related to anorexia, protein calorie malnutrition, dependent on transfusions. The patient is at high risk for severe subsequent sequela due to thrombocytopenia and neutropenia. Requested IV hydra tion today due to symptomatic hypotension with decreased oral intake. Would benefit from initiation of bowel regimen. Palliative care will continue to build rapport, provide pain and symptom management, care coordination and anticipatory guidance. Recommendations/Counseling Done: 1. Lambda light chain myeloma. Dr. Taylor at [facility] and [facility], Dr. Walsh. Patient is transfusion dependent. Pending bone marrow aspiration and biopsy on 02/02/2021. To begin Venetoclax if Plts greater than 50k. Continue to be followed and supported by oncology. 2. Thrombocytopenia and neutropenia due to disease progression. Patient presents to the [facility] on a daily basis typically for transfusions. He is to be transfused if his platelets are less than 10 or his hematocrit less than 25. Blake rubio wishes to proceed and not hold transfusions and wishes to move forward with these interventions. 3. Dehydration and protein calorie malnutrition. Discussed alternative liquid intake with items that hold electrolytes such as tea vs water for consumption. As the patient presently has oral mucositis recommend smoothies for increased calories. Patient is symptomatic today with hypotension and request that 1L NS be infused over 1 hour while in [facility] today for hydration. Continues on daily PRN hydration per parameters. 4. Constipation. Patient with fluctuations in constipation with poor oral intake. Discussed with the patient and spouse despite poor oral intake would still expect to have a daily to every other day bowel movements with understanding verbalized. Recommended initiation of Miralax 1 cap daily. Re- reviewed bowel protocol with utilization of MiraLAX and senna and how to titrate moving forward. The the goal is to have a daily, soft bowel movement with understanding verbalized. 5. Advanced care planning. Patient and has a strong desire to within his home. He declines hospice support and wishes to have an active therapy to extend his life with his family. He has a DNAR with selective intervention POLST in place at home. The patient is in a precarious situation and will likely have an unfortunate event leading to his due to underlying multiple myeloma. The patient is preparing himself by saying goodbyes to staff at [facility] and his family. His has been a strong advocate and she is a strong bereavement risk. Total time spent 35 minutes with greater than 50% of this spent in counseling and coordination of care with patient, spouse and supervisor costuming, review of VS and labs, examination of patient, review of pain and symptom management and anticipa tory guidance. Updated oncologist regarding IV hydration. Disclaimer: The chart note was formulated using voice recognition technology and unfortunately sound alike errors may occur.
== END 2021-02-01 13:01 | disposition home or self-care (01) ==
LOC: PC 13:00
PROVIDERS: ATTEND Nurse Practitioner Family
DX: Z51.5 Encounter for palliative care (principal); C90.02 Multiple myeloma in relapse; D69.6 Thrombocytopenia, unspecified; D70.9 Neutropenia, unspecified; E86.0 Dehydration; E46 Unspecified protein-calorie malnutrition; K59.00 Constipation, unspecified; G62.9 Polyneuropathy, unspecified; Z66 Do not resuscitate
CPT/HCPCS: 99214

== ENCOUNTER 2021-02-02 12:06 | Outpatient (CLI) | payer MEDICARE ==
[~2021-02-02 12:06] MED LIST: BUFFERED LIDOCAINE 10 ML SYRINGE ONE; LACTATED RINGERS 1,000 ML IV ONE
[2021-02-02] MEDS ORDERED: LACTATED RINGERS 1,000 ML IV ONE (12:35)
[2021-02-02 13:32] VITALS: BP 132/74
[2021-02-02 13:35] LABS: ALBUMIN 4.1 g/dL (3.2-5.5); ALBUMIN/GLOBULIN RATIO 1.6 (1.0-2.2); BILIRUBIN,TOTAL 1.5 mg/dL (0.2-1.0); CALCIUM 9.2 mg/dL (8.5-10.3); CREATININE 1.1 mg/dL (0.6-1.2); POTASSIUM 4.4 mmol/L (3.5-5.0); TOTAL PROTEIN 6.6 g/dL (6.7-8.2)
--- NOTE | 2021-02-02 14:27 | CT Report ---
PROCEDURE: BONE MARROW BX W/ASPIRATION INDICATIONS: MULTIPLE MYELOMA TECHNIQUE: The indications, alternatives, benefits, risks, and possible complications of the procedure were comm unicated to the patient. Informed written consent from the patient was obtained and placed in the art. Continuous EKG and hemodynamic monitoring was started by trained personnel. For radiation dose reduction, the following was used: automated exposure control, adjustment of mA and/or kV according to patient size. The patient was brought to the CT suite and salesperson driver spiral CT imaging was performed with localization g rid. The appropriate site for percutaneous access to the biopsy target was marked, was prepped and d raped sterilely, and was infused with local anaesthesia. Under CT guidance, a core biopsy trocar and needle set was advanced to the biopsy target, and specimen(s) were obtained. The trocar and needle were then removed, and the patient was sent for post-procedure monitoring. COMPARISON: None. FINDINGS: Biopsy site: Left posterior superior iliac spine Needle: 11 gauge biopsy needle with introducer trocar. Number of passes: 2 Medications: 1% lidocaine for local anaesthesia. IV Fentanyl and Versed for moderate sedation. Complications: None. IMPRESSION: Successful CT-guided biopsy of the left posterior superior iliac spine bone marrow. Reviewed by: Jaspal Chau on 02/02/2021 2:25 PM PDT Approved by: Jaspal Chau on 02/02/2021 2:25 PM PDT Station ID: [id number]
[2021-02-02] MEDS ORDERED: BUFFERED LIDOCAINE 10 ML SYRINGE IU ONE (16:49)
== END 2021-02-02 12:07 | disposition home or self-care (01) ==
LOC: DI 12:06
PROVIDERS: ATTEND Internal Medicine Hematology & Oncology
DX: C90.02 Multiple myeloma in relapse (principal); D69.6 Thrombocytopenia, unspecified; D70.9 Neutropenia, unspecified
CPT/HCPCS: 38222; 77012; 80053; J7120

== ENCOUNTER 2021-02-03 10:23 | Outpatient (CLI) | payer MEDICARE ==
--- NOTE | 2021-02-03 11:47 | Ultrasound Report ---
PROCEDURE: Abdomen Limited INDICATIONS: MULTIPLE MYELOMA, JAUNDICE TECHNIQUE: Real-time focused scanning was performed of the abdomen, with image documentation. COMPARISON: CT of abdomen and pelvis dated 01/14/2021, 01/08/2018. FINDINGS: Liver is enlarged in size with normal liver parenchymal echotexture. Multiple well-circumscribed hypo echoic areas are seen scattered in the liver parenchyma without internal vascularity likely represent hepatic cysts measures up to 3.3 x 2.6 cm in size in right hepatic lobe Gallbladder is distended. There is no gallbladder wall thickening. Common tail artifact is noted in n ondependent portion of gallbladder wall near fundus and is suggestive of adenomyomatosis. No perichol ecystic fluid or sonographic Mcneil's sign. There is no intrahepatic biliary ductal dilatation. Common bile duct measures up to 6.8 mm in diamete r and is in the upper limits of normal. Pancreas is not visualized on this study due to overlying bowel gas. Right kidney measures 11.5 cm in length. There is no hydronephrosis or nephrolithiasis. No gross paul d appearing renal lesion. IMPRESSION: 1. Hepatomegaly and multiple hepatic cysts as above. No gross solid appearing hepatic lesion. 2. Coronary tail artifact noted involving nondependent portion of gallbladder wall near fundus sugges tive of adenomyomatosis of gallbladder. No evidence of cholelithiasis or acute cholecystitis. 3. No intrahepatic biliary ductal dilatation. Common bile duct size is in the upper limits of normal for patient's age. Reviewed by: Madhav Hansen MD on 02/03/2021 11:46 AM PDT Approved by: Madhav Hansen MD on 02/03/2021 11:46 AM PDT Station ID: [id number]
== END 2021-02-03 10:24 | disposition home or self-care (01) ==
LOC: DI 10:23
PROVIDERS: ATTEND Internal Medicine
DX: C90.00 Multiple myeloma not having achieved remission (principal)

== ENCOUNTER 2021-02-05 13:41 | Outpatient (CLI) | payer MEDICARE | END 2021-02-05 13:42 | disposition home or self-care (01) | LOC: EMS 13:41 ==